=== PATIENT | male | born 1975 | race Caucasian/White ===

== ENCOUNTER 2018-10-04 10:32 | Inpatient (IN) ==
[2018-10-04] MEDS ORDERED: Vancomycin Inj 1,000 MG in Sodium Chlor 0.9% Inj 250 ML IV.SIG ONE (13:14)
--- NOTE | 2018-10-04 13:18 | ED ---
HPI General Chief complaint: Extremity Problem,Nontraumatic Stated complaint: Right Knee Complaint Time Seen by Provider: 10/04/18 12:55 History of Present Illness HPI narrative: 42-year-old IV drug user who was seen here 4 days ago for a right knee cellulitis. He was given Dalvance therapy and advised to come back for recheck in 48 hours. Instead he came back 4 days later and is not any better. He still has redness and warmth and swelling and discomfort in the right knee. He says it has drained a bit of fluid. He has not checked any temperatures but does not think he has any fever. His last IV drug use was 3 days ago. Symptom severity is moderate. No alleviating factors. Duration 6 days. No exacerbating factors. Related Data Previous Rx's Medication Instructions Recorded diclofenac sodium 50 mg PO TID #30 tab 09/30/18 Allergies Allergy/AdvReac Type Severity Reaction Status Date / Time No Known Allergies Allergy Unverified 10/04/18 10:47 Review of Systems ROS: all other systems reviewed are negative COUNTS INCLUDE 234 BEDS AT THE [facility] Social History Social History Substance History: Active Abuse Second Hand Smoke Exposure: No Smoking Status: Current every day smoker Tobacco Type: Cigarettes How Often Do You Have a Drink Containing Alcohol: Monthly or less Recent Travel in [facility] within the Last 8 Weeks: No Recent Out of Country Travel within the Last 8 Weeks: No Substance Abuse Detail Methamphetamine: Substance Use Status: Active Marijuana: Substance Use Status: Active Crack/Cocaine: Substance Use Status: Active Immunization History Tetanus Immunization: Unsure Exam Narrative Exam Narrative: GENERAL: Well-nourished, well-developed patient in no apparent distress. SKIN: Focused skin assessment reveals no rash and nodules. Skin is Warm and dry. HEAD: Atraumatic. Normocephalic. EYES: Pupils equal and round. No scleral icterus. No injection or drainage. ENT: No nasal bleeding or discharge. Mucous membranes pink and moist. NECK: Trachea midline. No JVD. CARDIOVASCULAR: Regular rate and rhythm. No murmur appreciated. RESPIRATORY: No accessory muscle use. Clear to auscultation. Breath sounds equal bilaterally. GASTROINTESTINAL: Abdomen soft, non-tender, nondistended. Hepatic and splenic margins not palpable. MUSCULOSKELETAL: Patient has a circular area of swelling erythema warmth and tenderness over the right patella. He has pain with flexion past 90 degrees. No pain with flexion less than that. No obvious deformities. No clubbing. No cyanosis. No edema. NEUROLOGICAL: Awake and alert. No obvious cranial nerve deficits. Motor grossly within normal limits. Normal speech. PSYCHIATRIC: Appropriate mood and affect; insight and judgment poor . Course Initial Documented Vital Signs Temperature 98.0 F 10/04/18 10:44 Pulse Rate 70 10/04/18 10:44 Respiratory Rate 20 10/04/18 10:44 Blood Pressure 138/81 10/04/18 10:44 Pulse Oximetry 100 10/04/18 10:44 Last Documented Vital Signs Temperature 98.0 F 10/04/18 10:44 Pulse Rate 70 10/04/18 10:44 Respiratory Rate 20 10/04/18 10:44 Blood Pressure 138/81 10/04/18 10:44 Pulse Oximetry 100 10/04/18 10:44 Medical Decision Making MDM Narrative Medical decision making narrative: 42-year-old IV drug using patient with right knee cellulitis/bursitis which is not improving with Dalvance therapy. He has failure of outpatient treatment. I did place an IV and sent in new labs and give him a gram of IV vancomycin. I believe he will require admission for IV antibiotics and failure of outpatient treatment. Without proper treatment this could possibly turn into a septic right knee joint. I do not believe it is a septic joint at this point But he will be at risk for development of that. labs are normal. I discussed with medical residents who will admit for IV antibiotics Medical Screen Exam Complete: Yes Emergency Medical Condition: Yes Differential Diagnosis Differential Diagnosis: Cellulitis, septic joint, failure of outpatient treatment Medical Records Medical records reviewed: Yes I reviewed the patient's medical records. Reviewed his visit from 4 days ago Lab Data Lab results reviewed: Yes I reviewed the patient's lab results. Lab results narrative: Labs are normal Result diagrams: 10/04/18 13:44 10/04/18 13:44 Lab Results 10/04/18 10/04/18 Range/Units 13:44 13:44 WBC 7.5 (4.0-11.0) th/mm3 RBC 4.16 L (4.50-5.90) mil/mm3 Hgb 13.0 (13.0-17.0) gm/dL Hct 37.6 L (39.0-51.0) % MCV 90.4 (80.0-100.0) fL MCH 31.2 (27.0-34.0) pg MCHC 34.5 (32.0-36.0) % RDW 13.5 (11.6-17.2) % Plt Count 392 (150-450) th/mm3 MPV 7.2 (7.0-11.0) fL Neut % (Auto) 77.1 H (16.0-70.0) % Lymph % (Auto) 17.1 (9.0-44.0) % Bee % (Auto) 4.6 (0.0-8.0) % Eos % (Auto) 0.8 (0.0-4.0) % Baso % (Auto) 0.4 (0.0-2.0) % Neut # (Auto) 5.7 (1.8-7.7) th/mm3 Lymph # (Auto) 1.3 (1.0-4.8) th/mm3 Bee # (Auto) 0.3 (0.0-0.9) th/mm3 Eos # (Auto) 0.1 (0.0-0.4) th/mm3 Baso # (Auto) 0.0 (0.0-0.2) th/mm3 WBC Differential . Differential Comment Auto diff final Sodium 141 (136-145) meq/L Potassium 3.8 (3.5-5.1) meq/L Chloride 106 (98-107) meq/L Carbon Dioxide 28.9 (21.0-32.0) meq/L Anion Gap 6 (5-15) meq/L BUN 3 L (7-18) mg/dL Creatinine 0.66 (0.60-1.30) mg/dL Estimated GFR Greater than 89 (>89) mL/min Random Glucose 91 (74-106) mg/dL Calcium 8.6 (8.5-10.1) mg/dL Total Bilirubin 0.1 L (0.2-1.0) mg/dL AST 30 (15-37) U/L ALT 42 (12-78) U/L Alkaline Phosphatase 88 (45-117) U/L Total Protein 7.9 (6.4-8.2) g/dL Albumin 3.0 L (3.4-5.0) g/dL Discharge Plan Discharge Disposition Patient Disposition: 30 Still Patient Discharge Details Diagnosis: Cellulitis of right knee, Failure of outpatient treatment Physicians Team ED Provider: Marcel Kay Primary Care Provider: Primary Care Jazzy Ortiz Rxs /Orders / Referrals /Forms Prescriptions: No Action diclofenac sodium 50 mg tablet,delayed release (DR/EC) 50 mg PO TID Qty: 30 RF: 0 Status ED Status: With Doctor
[2018-10-04 13:58] LABS: Baso % (Auto) 0.4 % (0.0-2.0); Eos # (Auto) 0.1 th/mm3 (0.0-0.4); Eos % (Auto) 0.8 % (0.0-4.0); Hematocrit 37.6 % (39.0-51.0); Lymph # (Auto) 1.3 th/mm3 (1.0-4.8); Lymph % (Auto) 17.1 % (9.0-44.0); Mean Corpuscular HGB Conc 34.5 % (32.0-36.0); Mean Corpuscular Hemoglobin 31.2 pg (27.0-34.0); Mean Corpuscular Volume 90.4 fL (80.0-100.0); Mean Platelet Volume 7.2 fL (7.0-11.0); Mono # (Auto) 0.3 th/mm3 (0.0-0.9); Mono % (Auto) 4.6 % (0.0-8.0); Neut # (Auto) 5.7 th/mm3 (1.8-7.7); Neut % (Auto) 77.1 % (16.0-70.0); Platelet Count 392 th/mm3 (150-450); Red Blood Count 4.16 mil/mm3 (4.50-5.90); Red Cell Distribution Width 13.5 % (11.6-17.2); White Blood Count 7.5 th/mm3 (4.0-11.0)
[2018-10-04 14:15] LABS: Anion Gap 6 meq/L (5-15); Aspartate Aminotransferase 30 U/L (15-37); Blood Urea Nitrogen 3 mg/dL (7-18); Calcium 8.6 mg/dL (8.5-10.1); Carbon Dioxide 28.9 meq/L (21.0-32.0); Chloride 106 meq/L (98-107); Glomerular Filtration Rate Greater Than 89 mL/min (>89); Glucose,Random 91 mg/dL (74-106); Potassium 3.8 meq/L (3.5-5.1); Sodium 141 meq/L (136-145)
[2018-10-04 14:16] LABS: Alanine Aminotransferase 42 U/L (12-78)
[2018-10-04 14:18] LABS: Alkaline Phosphatase 88 U/L (45-117); Total Protein 7.9 g/dL (6.4-8.2)
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
[2018-10-04] MEDS ORDERED: Acetaminophen 325 MG Tablet PO PRN (15:29)
[2018-10-04] MEDS ORDERED: Bisacodyl 10 MG Supp RECTAL PRN (15:29)
[2018-10-04] MEDS ORDERED: Vancomycin Consult Pharmacy OTHER PRN (15:42)
[2018-10-04] MEDS: Ketorolac 10 MG Tablet PO PRN (16:51)
[2018-10-04] MEDS: Sod Chloride 0.9% Inj 1,000 ML IV.CONT SCH (16:52)
[2018-10-04] MEDS: Enoxaparin Inj 30 MG/0.3 ML Syringe SQ SCH (17:45)
[2018-10-04] MEDS ORDERED: Naloxone Inj 0.4 MG/ML Vial IV.PUSH PRN (18:04)
[2018-10-04] MEDS ORDERED: Gadobutrol PF 7.5 MMOL/7.5 ML Vial (for RAD) IV.SIG ONE (19:04)
--- NOTE | 2018-10-04 19:37 | MR ---
EXAM DATE: 10/04/2018 7:05 PM EST AGE/SEX: 42 years / Male INDICATIONS: . Cellulitis. Right anterior knee wound. CLINICAL DATA: This is the patient's subsequent encounter. Patient reports that signs and symptoms h ave been present for 1 week and indicates a pain score of 4/10. MEDICAL/SURGICAL HISTORY: . IVDU. . Thoracic spine surgery. Clavicle plate. Right wrist surg tiera. COMPARISON: No prior exams available for comparison. TECHNIQUE: Multiplanar, multisequence MRI examination was performed with contrast and after the intr avenous administration of 7.5 ml Gadavist (gadobutrol) contrast as a single exam dose. FINDINGS: There is a complex rim-enhancing fluid collection in the soft tissues of the anterior knee anterior t o the patella and patellar tendon measuring at least 5.1 cm in length and 4.3 cm in transverse diamet er. There is overlying edema and soft tissue swelling. Part or all of this fluid collection could be within the prepatellar bursa. Finding is concerning for infection and possible abscess. There is surr ounding cellulitis. There is also a small knee joint effusion. The patellar tendon is intact. The anterior and posterior cruciate ligaments are intact. No meniscal tear is identified. There is some mild marrow edema along the medial femoral condyle extending in the supracondylar regio n and there is also some minimal edema within the patella. There is some mild marrow enhancement in t he medial femoral condyle postcontrast. CONCLUSION: 1. Probable prepatellar abscess or bursitis with complex rim-enhancing fluid collection present. The re is surrounding cellulitis. There is some mild marrow edema in the medial femoral condyle and neumann la with questionable enhancement postcontrast. Cannot exclude early osteomyelitis. Small knee joint e ffusion. Ligaments and menisci intact. Electronically signed by: Evin Tomas MD 10/04/2018 7:19 PM EST
[2018-10-04] MEDS: Senna/Docusate Sodium 8.6/50 MG Tablet PO SCH (21:07)
[2018-10-04] MEDS: Vancomycin Inj 1,250 MG in Sodium Chlor 0.9% Inj 250 ML IV.SIG SCH (23:24)
[2018-10-05] MEDS: Sod Chloride 0.9% Inj 1,000 ML IV.CONT SCH (04:49)
[2018-10-05 08:52] LABS: Baso % (Auto) 0.6 % (0.0-2.0); Eos # (Auto) 0.1 th/mm3 (0.0-0.4); Eos % (Auto) 1.9 % (0.0-4.0); Hematocrit 35.3 % (39.0-51.0); Hemoglobin 11.9 gm/dL (13.0-17.0); Lymph # (Auto) 1.1 th/mm3 (1.0-4.8); Mean Corpuscular HGB Conc 33.9 % (32.0-36.0); Mean Corpuscular Hemoglobin 30.4 pg (27.0-34.0); Mean Corpuscular Volume 89.7 fL (80.0-100.0); Mean Platelet Volume 7.4 fL (7.0-11.0); Mono # (Auto) 0.2 th/mm3 (0.0-0.9); Mono % (Auto) 4.8 % (0.0-8.0); Neut # (Auto) 3.7 th/mm3 (1.8-7.7); Neut % (Auto) 71.7 % (16.0-70.0); Platelet Count 404 th/mm3 (150-450); Red Blood Count 3.93 mil/mm3 (4.50-5.90); Red Cell Distribution Width 13.1 % (11.6-17.2); White Blood Count 5.1 th/mm3 (4.0-11.0)
[2018-10-05 09:29] LABS: Anion Gap 8 meq/L (5-15); Calcium 8.2 mg/dL (8.5-10.1); Carbon Dioxide 25.2 meq/L (21.0-32.0); Chloride 108 meq/L (98-107); Glomerular Filtration Rate Greater Than 89 mL/min (>89); Glucose,Random 81 mg/dL (74-106); Potassium 3.9 meq/L (3.5-5.1); Sodium 141 meq/L (136-145)
[2018-10-05 09:34] LABS: Blood Urea Nitrogen 4 mg/dL (7-18)
[2018-10-05] MEDS: Senna/Docusate Sodium 8.6/50 MG Tablet PO SCH ×2 (09:41→21:23)
[2018-10-05] MEDS: Ketorolac 10 MG Tablet PO PRN (09:41)
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
[2018-10-05] MEDS: Vancomycin Inj 1,250 MG in Sodium Chlor 0.9% Inj 250 ML IV.SIG SCH (13:23)
--- NOTE | 2018-10-05 15:11 | P.CONID ---
History of Present Illness Service: Infectious Disease Consult date: 10/05/18 Requesting Physician: Christopher Madrigal Reason for Consult: Evaluation and Mment of Patellar abscess and possible septic arthritis. Primary Care Provider: No Primary Care Physician Chief Complaint: Right knee cellulitis History of Present Illness: Mr. Ernst is a 42-year-old male with past medical history significant for IV drug abuse with prior history of multiple skin abscesses. Patient denies any prior history of endocarditis or epidural abscesses. Patient presented to the emergency department on September 30, 2018 for right knee pain and swelling. At that time he was thought to have cellulitis and was given 1 dose of dalbavancin which is an extended release Lipoglycoprotein like vancomycin IV and asked to return for reassessment in 2 days. Patient returned on 10/04/2018 and was admitted due to worsening pain and swelling. Knee pain worst with weight bearing, however still able to ambulate. He denies fever, chills , n/v, dizziness, back pain, cp or sob. Patient also noticed pus-like drainage from knee last night but denies increase in erythema. Of note patient uses IV heroin and meth, last used 3 days ago. He reports he only injects on both arms. Denies any pain elsewhere in his body. He denies any injection at knee likely hematogenous dissemination will need endovascular workup. ID consulted for evaluation and Mment of patellar abscess and possible right knee septic arthritis. Review of Systems All other systems reviewed negative except as stated in HPI PMFSH - History History Provided By: Patient - Medical History Medical History: Medical History (Last Reviewed 10/04/18 @ 10:47 by Susana Oh) Hepatitis C Patient denies medical problems - Surgical History Surgical History: Surgical History (Last Reviewed 10/04/18 @ 10:47 by Susana Oh) History of back surgery - Tobacco History Second Hand Smoke Exposure: Yes Tobacco Use In Past 30 Days: Yes Smoking Status: Current every day smoker Tobacco Type: Cigarettes - Alcohol History How Often Do You Have a Drink Containing Alcohol: Never - Substance Use History Substance History: Active Abuse - Substance Use Type Methamphetamine Status: Active Route Used: Intramuscular Reason for Use: Feels Good Marijuana Status: Active Route Used: By Mouth Reason for Use: Feels Good Crack/Cocaine Status: Active Route Used: Intramuscular Last Used: 10/01/18 Reason for Use: Feels Good - Travel History Recent Travel in the [place] Within the Last 8 Weeks: No Recent Travel Out of the Country Within the Last 8 Weeks: No - Immunization History Tetanus Immunization: <5 Years Hx Influenza Vaccine This Season: Yes Medications and Allergies Active Medications: Active Medications Acetaminophen (Tylenol) 650 mg PO Q4H PRN PRN Reason: pain or fever Al Hydroxide/Mg Hydroxide (Milk Of Magnesia Liq) 30 ml PO Q12H PRN PRN Reason: Mild Constipation Bisacodyl (Dulcolax Supp) 10 mg RECTAL DAILY PRN PRN Reason: SEVERE CONSITIPATION Enoxaparin Sodium (Lovenox Inj) 30 mg SQ Q24H [facility] Last Admin: 10/04/18 17:45 Dose: 30 mg Vancomycin HCl 1,250 mg/ (Sodium Chloride) 262.5 mls @ 250 mls/hr IV.SIG Q12H [facility] Last Admin: 10/05/18 13:23 Dose: Not Given Ketorolac Tromethamine (Toradol) 10 mg PO Q6H PRN PRN Reason: pain 4-10 Stop: 10/09/18 15:34 Last Admin: 10/05/18 09:41 Dose: 10 mg Lactulose (Lactulose Liq) 30 ml PO DAILY PRN PRN Reason: SEVERE CONSITIPATION Miscellaneous Information ([facility] [place] [facility] Ordered Lab Info) 0 each OTHER ONCE ONE Stop: 10/06/18 11:46 Morphine Sulfate (Morphine Inj) 4 mg IV.PUSH Q3H PRN PRN Reason: BREAKTHROUGH PAIN Naloxone HCl (Narcan Inj) 0.4 mg IV.PUSH UNSCH PRN PRN Reason: SEE LABEL COMMENTS Ondansetron HCl (Zofran Inj) 4 mg IV.PUSH Q6H PRN PRN Reason: NAUSEA OR VOMITING Pharmacy Profile Note (Vancomycin Consult Pharmacy) 1 each OTHER UNSCH PRN PRN Reason: Pharmacy to dose Senna/Docusate Sodium (Paty-Colace) 1 tab PO BID [facility] Last Admin: 10/05/18 09:41 Dose: 1 tab Sennosides (Senokot) 17.2 mg PO Q12H PRN PRN Reason: Moderate Constipation Allergies Allergy/AdvReac Type Severity Reaction Status Date / Time No Known Allergies Allergy Unverified 10/04/18 10:47 Exam Vital signs: Vital Signs 10/04/18 20:00 10/05/18 04:00 10/05/18 08:00 Temperature 97.9 F 98 F 98.0 F Pulse Rate 62 59 L 58 L Respiratory Rate 17 18 18 Blood Pressure 121/75 128/82 119/65 Pulse Oximetry 98 98 100 10/05/18 12:00 Temperature 98.0 F Pulse Rate 58 L Respiratory Rate 18 Blood Pressure 119/65 Pulse Oximetry 100 Intake & Output 10/04/18 10/05/18 10/05/18 18:59 06:59 18:59 Intake Total 250 / 250 1742.5 / 1742.5 Output Total 450 / 450 Balance 250 / 250 1292.5 / 1292.5 Weight 72.575 kg Intake: IV 250 / 250 1262.5 / 1262.5 NS Inj 1,000 ML @ 100 mls/hr IV 1000 / 1000 .CONT .Q10H [facility] Rx#:[id number] Vancomycin Inj 1,000 MG In NS 250 / 250 Inj 250 ML @ 250 mls/hr IV.SIG ONCE ONE Rx#:[id number] Vancomycin Inj 1,250 MG In NS 262.5 / 262.5 Inj 250 ML @ 250 mls/hr IV.SIG Q12H [facility] Rx#:[id number] Oral 480 / 480 Output: Urine 450 / 450 Other: # Bowel Movements 0 Narrative: GENERAL: Well-nourished well-developed, not in acute distress SKIN: Cool and dry, no generalized rash HEAD: Atraumatic. Normocephalic. No temporal or scalp tenderness. EYES: Pupils equal round and reactive. Scleral icterus. No injection or drainage. No petechia ENT: Nothing abnormal detected NECK: Trachea midline. Supple, nontender, no meningeal signs. CARDIOVASCULAR: HS audible. RESPIRATORY: Clear to auscultation bilaterally. GASTROINTESTINAL: Abdomen soft nontender. MUSCULOSKELETAL: Right knee with swelling noted. Skin over the knee joint with blister like skin peeling. RN reports it was blister like with fluid filled. NEUROLOGICAL: Alert oriented 3. Nonfocal. Psych cooperative IV line sites ok. Results - Labs CBC & Chem 7: 10/05/18 07:13 10/05/18 07:13 Labs: Laboratory Results - last 24 hr 10/04/18 10/05/18 10/05/18 13:44 07:13 07:13 WBC 5.1 RBC 3.93 L Hgb 11.9 L Hct 35.3 L MCV 89.7 MCH 30.4 MCHC 33.9 RDW 13.1 Plt Count 404 MPV 7.4 Neut % (Auto) 71.7 H Lymph % (Auto) 21.0 [place] % (Auto) 4.8 Eos % (Auto) 1.9 Baso % (Auto) 0.6 Neut # (Auto) 3.7 Lymph # (Auto) 1.1 [place] # (Auto) 0.2 Eos # (Auto) 0.1 Baso # (Auto) 0.0 WBC Differential . Differential Comment Auto diff final Sodium 141 Potassium 3.9 Chloride 108 H Carbon Dioxide 25.2 Anion Gap 8 BUN 4 L Creatinine 0.73 Estimated GFR Greater than 89 Random Glucose 81 Calcium 8.2 L C-Reactive Protein 3.01 H 1.10 H - Imaging Impressions Knee MRI 10/04/18 00:00 CONCLUSION: 1. Probable prepatellar abscess or bursitis with complex rim-enhancing fluid collection present. There is surrounding cellulitis. There is some mild marrow edema in the medial femoral condyle and patella with questionable enhancement postcontrast. Cannot exclude early osteomyelitis. Small knee joint effusion. Ligaments and menisci intact. Assessment and Plan - Plan Right knee patellar abscess/bursitis Right knee possible septi c arthritis IVDA H/o Hep C Shares needles consented to HIV Hepatitis testing. h/o skin abscesses in past. Recs: Patient has received Dalbavancin please dont give any more Vanco IV as it can be nephrotoxic. Will switch to Zyvox IV for next few days till Dalvance elimination life reached. Will get coverage for VRE and MRSA as patient likely continued abusing drugs post ED visit. Monitor Platelets and HCO3 if any change in clinical condition add Cefepime IV for PSAE coverage in an IVDA. For now since prelim organisms are GPC in pairs Gram positive coverage alone ok. 2D ECHO to r.o endocarditis. Check GC and Chlamydia as GC arthritis can be monoarticular. Check hepatitis profile Check HIV screen Follow cultures follow clinical course. Dr Clemente to cover for me this weekend.
[2018-10-05] MEDS: Enoxaparin Inj 30 MG/0.3 ML Syringe SQ SCH ×2 (17:24→18:02)
[2018-10-05 21:14] LABS: Hepatitits B Surface Antigen Nonreactive (Nonreactive)
[2018-10-05 21:23] LABS: Hepatitis A IgM Antibody Nonreactive (Nonreactive)
[2018-10-06] MEDS ORDERED: fentaNYL Citrate Inj 250 MCG/5 ML Ampul ONE (07:12)
[2018-10-06 07:19] LABS: Baso % (Auto) 0.6 % (0.0-2.0); Eos # (Auto) 0.1 th/mm3 (0.0-0.4); Eos % (Auto) 2.5 % (0.0-4.0); Hematocrit 36.9 % (39.0-51.0); Hemoglobin 12.4 gm/dL (13.0-17.0); Lymph # (Auto) 1.4 th/mm3 (1.0-4.8); Lymph % (Auto) 25.9 % (9.0-44.0); Mean Corpuscular HGB Conc 33.8 % (32.0-36.0); Mean Corpuscular Hemoglobin 30.4 pg (27.0-34.0); Mean Corpuscular Volume 90.1 fL (80.0-100.0); Mean Platelet Volume 7.1 fL (7.0-11.0); Mono # (Auto) 0.3 th/mm3 (0.0-0.9); Mono % (Auto) 5.8 % (0.0-8.0); Neut # (Auto) 3.6 th/mm3 (1.8-7.7); Neut % (Auto) 65.2 % (16.0-70.0); Platelet Count 397 th/mm3 (150-450); Red Blood Count 4.09 mil/mm3 (4.50-5.90); Red Cell Distribution Width 12.9 % (11.6-17.2); White Blood Count 5.6 th/mm3 (4.0-11.0)
[2018-10-06] MEDS ORDERED: ceFAZolin 1 GM Premix Inj 0 GM/0 ML FROZ.PIGGY IV.SIG ONE (07:23)
[2018-10-06 07:46] LABS: Anion Gap 9 meq/L (5-15); Blood Urea Nitrogen 6 mg/dL (7-18); Calcium 8.2 mg/dL (8.5-10.1); Carbon Dioxide 26.3 meq/L (21.0-32.0); Chloride 107 meq/L (98-107); Glomerular Filtration Rate Greater Than 89 mL/min (>89); Glucose,Random 82 mg/dL (74-106); Sodium 142 meq/L (136-145)
[2018-10-06] MEDS ORDERED: Lidocaine PF 1% Inj 5 ML Syringe OTHER ONE (07:51)
[2018-10-06] MEDS ORDERED: Sodium Chlor 0.9% Inj 250 ML IV.CONT ONE (07:51)
[2018-10-06] MEDS ORDERED: Sodium Chloride 0.9% 2 ML Flush PRN IV.FLUSH (08:20)
[2018-10-06] MEDS: Senna/Docusate Sodium 8.6/50 MG Tablet PO SCH ×2 (08:23→20:00)
[2018-10-06] MEDS ORDERED: *Meperidine Inj 25 MG/ML Vial PERIprocedural Use ONLY ONE (08:55)
[2018-10-06] MEDS ORDERED: *morphine SULFATE 10 MG/ML PERIprocedure ONLY ONE (09:02)
[2018-10-06] MEDS ORDERED: *HYDROmorphone PF Inj 1 MG/ML Ampul PERIprocedural Use ONLY ONE (09:20)
[2018-10-06] MEDS: Sodium Chloride 0.9% 2 ML Flush BID IV.FLUSH SCH ×2 (09:32→20:01)
--- NOTE | 2018-10-06 10:02 | MB ---
cc: Kade Geiger MD DATE: 10/06/2018 REASON FOR CONSULTATION: Right knee infection. HISTORY OF PRESENT ILLNESS: The patient is a 42-year-old male with past history of IV drug abuse, multiple skin abscesses. He states he had fallen, injuring his right knee. He developed the onset of increasing pain, swelling, redness and purulent drainage. He also has a history of endocarditis and epidural abscess. He was apparently seen in the emergency room, put on antibiotics and discharged. He returned with increasing pain and swelling of the knee. He does show evidence of infection and placed on IV antibiotics. Orthopedic surgery has been consulted for evaluation and management of this condition. He has had malaise and fevers. PAST MEDICAL HISTORY: Positive for hepatitis C, IV drug abuse, epidural abscess, and endocarditis. PAST SURGICAL HISTORY: He has had back surgery. REVIEW OF SYSTEMS: Negative other than noted in HPI for 10 systems. SOCIAL HISTORY: He does smoke. He does use IV drugs. He does drink alcohol. MEDICATIONS: Include: 1. Vancomycin. 2. Morphine. 3. Ketorolac. 4. Lovenox. ALLERGIES: NO KNOWN DRUG ALLERGIES. FAMILY HISTORY: Reviewed and noncontributory. PHYSICAL EXAMINATION: VITAL SIGNS: Temperature 97.9, pulse 62, respirations 17, blood pressure 121/75. GENERAL: The patient is awake, alert, lying in bed, in no acute distress. SKIN: Cool and dry. No rash. HEENT: Normocephalic, atraumatic. Pupils round. Extraocular muscles intact. NECK: Supple. LUNGS: Clear. HEART: Regular rate and rhythm. ABDOMEN: Soft, nontender. EXTREMITIES: Right knee has significant swelling, mostly of the prepatellar area. There is blistering of the skin and purulence noted. He flexes his ankles and toes distally. LABORATORY DATA: White blood cell count 5.1, hemoglobin 11, hematocrit 35, platelets 404. IMAGING: MRI of the right knee shows a prepatellar abscess and bursitis surrounding cellulitis. There is some marrow edema of the medial femoral condyle and patella. IMPRESSION: A 42-year-old male with history of fall. Also, history of IV drug abuse, hepatitis C with infected prepatellar septic bursitis with abscess. PLAN: I discussed the diagnosis and treatment options with the patient and spoke of the option of nonoperative treatment versus surgery. Surgery consists of irrigation and debridement, incision and drainage, and application of wound VAC. Risks were discussed, which include, but are not limited to anesthesia, bleeding, continued infection, pain, stiffness, damage to nerves, or blood vessels. The patient does wish to proceed with surgery. Written consent has been obtained. The surgical site has been marked. Kade Geiger MD [id number] , 08:47 AM , 08:55 AM
--- NOTE | 2018-10-06 10:48 | P.PNFP ---
Addendum entered and electronically signed by Aliya Frazier MD, R1 10/06/18 11:44: Following ID recommendations and stopping vancomycin. The patient will be on Zyvox IV until further recommendations based on cultures. Original Note: Subjective Interval history: Patient states he is in pain after surgery and hungry. Re- assured patient to ask nurse for pain medications and diet was ordered. Gave patient crackers and peanut butter until meal came. Patient denied any SOB, CP, or fevers. <Aliya Frazier C - 10/06/18 11:02> Results - Labs Result diagrams: 10/06/18 05:48 10/06/18 05:48 <Rina Lam R - 10/07/18 07:15> Abnormal lab results 10/06/18 10/06/18 Range/Units 05:48 05:48 RBC 4.09 L (4.50-5.90) mil/mm3 Hgb 12.4 L (13.0-17.0) gm/dL Hct 36.9 L (39.0-51.0) % BUN 6 L (7-18) mg/dL Calcium 8.2 L (8.5-10.1) mg/dL Short CBC 10/06/18 Range/Units 05:48 WBC 5.6 (4.0-11.0) th/mm3 Hgb 12.4 L (13.0-17.0) gm/dL Hct 36.9 L (39.0-51.0) % Plt Count 397 (150-450) th/mm3 [facility] 10/06/18 05:48 Sodium 142 Potassium 4.0 Chloride 107 Carbon Dioxide 26.3 BUN 6 L Creatinine 0.77 Calcium 8.2 L <Rina Lam R - 10/07/18 07:15> Abnormal lab results 10/05/18 10/06/18 10/06/18 Range/Units 18:53 05:48 05:48 RBC 4.09 L (4.50-5.90) mil/mm3 Hgb 12.4 L (13.0-17.0) gm/dL Hct 36.9 L (39.0-51.0) % BUN 6 L (7-18) mg/dL Calcium 8.2 L (8.5-10.1) mg/dL Hep C IgG Ab Reactive H (Nonreactive) Short CBC 10/06/18 Range/Units 05:48 WBC 5.6 (4.0-11.0) th/mm3 Hgb 12.4 L (13.0-17.0) gm/dL Hct 36.9 L (39.0-51.0) % Plt Count 397 (150-450) th/mm3 BMP 10/06/18 05:48 Sodium 142 Potassium 4.0 Chloride 107 Carbon Dioxide 26.3 BUN 6 L Creatinine 0.77 Calcium 8.2 L <Aliya Frazier C - 10/06/18 10:48> Physical Exam Vital signs: Vital Signs 10/06/18 08:45 10/06/18 09:00 10/06/18 09:25 Temperature 97.8 F Pulse Rate 52 L 52 L 50 L Respiratory Rate 17 17 12 Blood Pressure 111/69 132/80 133/81 Pulse Oximetry 97 97 96 10/06/18 09:30 10/06/18 09:45 10/06/18 10:00 Temperature 97.8 F Pulse Rate 50 L 50 L 53 L Respiratory Rate 15 12 12 Blood Pressure 123/77 134/87 135/80 Pulse Oximetry 96 96 96 10/06/18 12:00 10/06/18 13:00 10/06/18 16:00 Temperature 97.4 F L 97.6 F Pulse Rate 67 51 L 54 L Respiratory Rate 18 18 Blood Pressure 134/71 123/66 Pulse Oximetry 97 95 10/06/18 20:00 10/06/18 20:12 10/06/18 23:51 Temperature 97.6 F Pulse Rate 60 83 52 L Respiratory Rate 18 Blood Pressure 118/63 Pulse Oximetry 97 10/07/18 00:00 10/07/18 03:53 10/07/18 04:00 Temperature 97.8 F 97.9 F Pulse Rate 57 L 51 L 55 L Respiratory Rate 16 16 Blood Pressure 115/63 122/71 Pulse Oximetry 100 97 Intake & Output 10/06/18 10/07/18 10/07/18 18:59 06:59 18:59 Intake Total 1020 / 1020 900 / 900 Output Total 1000 / 1000 1500 / 1500 Balance -600 / -600 Weight 73.9 kg Intake: IV 300 / 300 300 / 300 Zyvox 600 mg Premix 300 ML @ 300 / 300 300 / 300 300 mls/hr IV.SIG Q12H [facility] Rx#: [id number] Oral 720 / 720 600 / 600 Output: Urine 1000 / 1000 1500 / 1500 Other: Mode Setting Right Knee Continuous Continuous <Rina Lam R - 10/07/18 07:15> Vital Signs 10/05/18 12:00 10/05/18 16:00 10/05/18 20:00 Temperature 98.0 F 98.0 F 97.4 F L Pulse Rate 58 L 56 L 56 L Respiratory Rate 18 20 17 Blood Pressure 119/65 127/76 127/64 Pulse Oximetry 100 100 95 10/05/18 21:00 10/06/18 00:00 10/06/18 01:00 Temperature 97.8 F Pulse Rate 63 62 57 L Respiratory Rate 14 Blood Pressure 132/80 Pulse Oximetry 99 10/06/18 04:00 10/06/18 08:45 10/06/18 09:00 Temperature 97.5 F L 97.8 F Pulse Rate 51 L 52 L 52 L Respiratory Rate 14 17 17 Blood Pressure 119/73 111/69 132/80 Pulse Oximetry 97 97 97 10/06/18 09:25 10/06/18 09:30 10/06/18 09:45 Temperature Pulse Rate 50 L 50 L 50 L Respiratory Rate 12 15 12 Blood Pressure 133/81 123/77 134/87 Pulse Oximetry 96 96 96 10/06/18 10:00 Temperature 97.8 F Pulse Rate 53 L Respiratory Rate 12 Blood Pressure 135/80 Pulse Oximetry 96 Intake & Output 10/05/18 10/06/18 10/06/18 18:59 06:59 18:59 Intake Total 1208 / 1208 540 / 540 Output Total 1400 / 1400 Balance -192 / -192 540 / 540 Intake: IV 500 / 500 300 / 300 NS Inj 1,000 ML @ 100 mls/hr IV 500 / 500 .CONT .Q10H [facility] Rx#:[id number] Zyvox 600 mg Premix 300 ML @ 300 / 300 300 mls/hr IV.SIG Q12H [facility] Rx#: [id number] Oral 708 / 708 240 / 240 Output: Urine 1400 / 1400 Other: # Voids 4 # Bowel Movements 0 <Aliya Frazier - 10/06/18 10:48> Narrative: GENERAL: Well-nourished well-developed, not in acute distress SKIN: Cool and dry, no generalized rash HEAD: Atraumatic. Normocephalic. No temporal or scalp tenderness. EYES: Pupils equal round and reactive. Scleral icterus. No injection or drainage. No petechia ENT: Nothing abnormal detected NECK: Trachea midline. Supple, nontender, no meningeal signs. CARDIOVASCULAR: HS audible. RESPIRATORY: Clear to auscultation bilaterally. GASTROINTESTINAL: Abdomen soft nontender. MUSCULOSKELETAL: right knee wound vac in place draining serous sanguinous fluid. Knee some erythema. NEUROLOGICAL: Alert oriented 3. Nonfocal. Psych cooperative IV line sites ok. <Aliya Frazier C - 10/06/18 11:02> Assessment and Plan - Assessment (1) Cellulitis of right knee Code(s): L03.115 - Cellulitis of right lower limb Status: Inactive (2) Hepatitis C Code(s): B19.20 - Unspecified viral hepatitis C without hepatic coma Status: Acute (3) Nutrition, metabolism, and development symptoms Code(s): R63.8 - Other symptoms and signs concerning food and fluid intake Status: Acute <Rina Lam R - 10/07/18 07:15> (1) Cellulitis of right knee Code(s): L03.115 - Cellulitis of right lower limb Status: Inactive Plan: Patient is a 42-year-old male with past medical history of IV drug use presenting to the ED with worsening right knee pain and swelling. Patient failed out patient treatment with Dalvance. Admitted for Right knee cellulitis with failed outpatient treatment. Prior ED encounter on 09/30 x-ray of the right knee showed: Prepatellar swelling , no acute bony abnormalities. On admission patient vital signs, CBC and CMP were within normal limits. Right knee erythema and swelling noted on exam with limited flexion due to pain. Erythema measured to be 10 x 8 cm. MRI: abscess vs bursitis; given edema cannot rule out osteomyelitis 10/05/18 Involved area of the right knee pre-patellar region now has some spontaneous drainage which has been cultured. Inflammatory changes have improved. Will continue IV antibiotics. Will consult ID regarding further treatment recommendations. I would suspect that this infection is more likely associated with the recent trauma than with IV drug use. In the ED patient received IV vancomycin x1 -Continue with IV vancomycin, pharmacy consulted for dosage adjustment -Tylenol and Toradol for pain -BCX NG to date -Wound gram stain G+ cocci; CX pending -ID consult: GC and chlamydia, HIV, hep C labs -Ortho consult: of irrigation and debridement, incision and drainage, and application of wound VAC; cultures pending (2) Hepatitis C Code(s): B19.20 - Unspecified viral hepatitis C without hepatic coma Status: Acute Plan: Diagnosed with Hep C during admission. -RNA PCR pending -appreciate ID recommendations (3) Nutrition, metabolism, and development symptoms Code(s): R63.8 - Other symptoms and signs concerning food and fluid intake Status: Acute Plan: Fluids: none Electrolytes: Replete as needed Diet: Regular diet DVT prophylaxis: Lovenox SQ <Aliya Frazier - 10/06/18 10:59> - Attending Attestation This patient was seen and examined. The assessment and plan was discussed with the resident physician and I am in agreement with continued medical care as documented in this encounter. RINA LAM MD <Rina Lam - 10/07/18 07:15>
[2018-10-06] MEDS: Morphine Inj 4 MG/ML Vial IV.PUSH PRN ×2 (11:18→15:34)
[2018-10-06] MEDS ORDERED: Pharmacy Ordered Lab Info OTHER ONE (11:45)
--- NOTE | 2018-10-06 12:14 | MP ---
cc: Kade Geiger MD DATE OF OPERATION: 10/06/2018 PREOPERATIVE DIAGNOSIS: Right knee infected septic bursitis. POSTOPERATIVE DIAGNOSIS: Right knee infected septic bursitis. PROCEDURE: Irrigation and debridement, incision and drainage, right knee, application of wound VAC. SURGEON: Kade Geiger MD ANESTHESIA: General. ESTIMATED BLOOD LOSS: 100 mL. TOURNIQUET TIME: Zero. COMPLICATIONS: None. INDICATIONS: The patient is a 42-year-old male who had a history of a fall, also history of IV drug abuse, who developed increasing pain, swelling, redness, purulence, infection and drainage involving the right knee. He was admitted to [facility]. Orthopedic surgery was consulted and we discussed with the patient the risks, benefits and alternatives regarding the above mentioned pre- and postop procedure. He agrees to proceed with surgery. PROCEDURE IN DETAIL: Written consent was obtained. The patient was identified by name, taken to the operating room and placed supine with general anesthesia administered to the patient, as well as 1 gram of IV vancomycin. The right lower extremity was prepped and draped using isopropyl alcohol, Hibiclens solution and ChloraPrep 3 times. A timeout was performed. Lateral incision was made over the anterior aspect of the right knee. A copious amount of purulent fluid was noted to come from the prepatellar space. A 10 blade scalpel was used to perform an excisional debridement of the bursa and infected tissue. The wound was then thoroughly irrigated with 3 liters of sterile saline plus antibiotic impregnated solution. A wound VAC sponge was applied. The patient tolerated the procedure well. No intraoperative complications noted. MD ABBE Bautista/sergo/yaneli , 08:49 AM , 08:53 AM
[2018-10-06] MEDS: Enoxaparin Inj 30 MG/0.3 ML Syringe SQ SCH (15:17)
--- NOTE | 2018-10-06 15:29 | P.PNID ---
Subjective Remarks: Mr. Ernst is a 42-year-old male with past medical history significant for IV drug abuse with prior history of multiple skin abscesses. Patient denies any prior history of endocarditis or epidural abscesses. Patient presented to the emergency department on September 30, 2018 for right knee pain and swelling. At that time he was thought to have cellulitis and was given 1 dose of dalbavancin which is an extended release Lipoglycoprotein like vancomycin IV and asked to return for reassessment in 2 days. Patient returned on 10/04/2018 and was admitted due to worsening pain and swelling. Knee pain worst with weight bearing, however still able to ambulate. He denies fever, chills , n/v, dizziness, back pain, cp or sob. Patient also noticed pus-like drainage from knee last night but denies increase in erythema. Of note patient uses IV heroin and meth, last used 3 days ago. He reports he only injects on both arms. Denies any pain elsewhere in his body. He denies any injection at knee likely hematogenous dissemination will need endovascular workup. ID consulted for evaluation and Mment of patellar abscess and possible right knee septic arthritis. Notes reviewed Temps ok Had surgery this morning - septic prepatellar bursitis; has wound vac in place C/O severe pain D/W RN C/S 10/05 Staph aureus preliminary BC negative Antibiotics: Zyvox Lines: PIV Past Medical History: Hep C Back surgery Allergies/Adverse Reactions: Allergies No Known Allergies Allergy (Unverified 10/04/18 10:47) Objective Vital Signs 10/05/18 16:00 10/05/18 20:00 10/05/18 21:00 Temperature 98.0 F 97.4 F L Pulse Rate 56 L 56 L 63 Respiratory Rate 20 17 Blood Pressure 127/76 127/64 Pulse Oximetry 100 95 10/06/18 00:00 10/06/18 01:00 10/06/18 04:00 Temperature 97.8 F 97.5 F L Pulse Rate 62 57 L 51 L Respiratory Rate 14 14 Blood Pressure 132/80 119/73 Pulse Oximetry 99 97 10/06/18 08:45 10/06/18 09:00 10/06/18 09:25 Temperature 97.8 F Pulse Rate 52 L 52 L 50 L Respiratory Rate 17 17 12 Blood Pressure 111/69 132/80 133/81 Pulse Oximetry 97 97 96 10/06/18 09:30 10/06/18 09:45 10/06/18 10:00 Temperature 97.8 F Pulse Rate 50 L 50 L 53 L Respiratory Rate 15 12 12 Blood Pressure 123/77 134/87 135/80 Pulse Oximetry 96 96 96 10/06/18 12:00 10/06/18 13:00 Temperature 97.4 F L Pulse Rate 67 51 L Respiratory Rate 18 Blood Pressure 134/71 Pulse Oximetry 97 Intake & Output 10/05/18 10/06/18 10/06/18 18:59 06:59 18:59 Intake Total 1208 / 1208 540 / 540 300 / 300 Output Total 1400 / 1400 Balance -192 / -192 540 / 540 300 / 300 Intake: IV 500 / 500 300 / 300 300 / 300 NS Inj 1,000 ML @ 100 mls/hr IV 500 / 500 .CONT .Q10H [facility] Rx#:[id number] Zyvox 600 mg Premix 300 ML @ 300 / 300 300 / 300 300 mls/hr IV.SIG Q12H [facility] Rx#: [id number] Oral 708 / 708 240 / 240 Output: Urine 1400 / 1400 Other: Mode Setting Right Knee Continuous # Voids 4 # Bowel Movements 0 10/06/18 08:29 Wound - Knee Gram Stain - Final 10/06/18 08:29 Wound - Knee Wound Culture - Pending 10/05/18 10:15 Wound - Knee Gram Stain - Final 10/05/18 10:15 Wound - Knee Wound Culture - Preliminary Staphylococcus aureus 10/05/18 07:17 Blood - Peripheral Aerobic Blood Culture - Preliminary No growth in 1 day 10/05/18 07:17 Blood - Peripheral Anaerobic Blood Culture - Preliminary No growth in 1 day 10/05/18 07:13 Blood - Peripheral Aerobic Blood Culture - Preliminary No growth in 1 day 10/05/18 07:13 Blood - Peripheral Anaerobic Blood Culture - Preliminary No growth in 1 day 10/06/18 08:29 Wound - Knee Fungal Smear - Pending 10/06/18 08:29 Wound - Knee Fungal Culture - Pending 10/06/18 08:29 Wound - Knee Acid Fast Bacilli Smear - Pending 10/06/18 08:29 Wound - Knee Mycobacterial Culture - Pending Lab - Hematology Results 10/05/18 10/06/18 07:13 05:48 WBC 5.1 5.6 RBC 3.93 L 4.09 L Hgb 11.9 L 12.4 L Hct 35.3 L 36.9 L MCV 89.7 90.1 MCH 30.4 30.4 MCHC 33.9 33.8 RDW 13.1 12.9 Plt Count 404 397 MPV 7.4 7.1 Neut % (Auto) 71.7 H 65.2 Lymph % (Auto) 21.0 25.9 [place] % (Auto) 4.8 5.8 Eos % (Auto) 1.9 2.5 Baso % (Auto) 0.6 0.6 Neut # (Auto) 3.7 3.6 Lymph # (Auto) 1.1 1.4 [place] # (Auto) 0.2 0.3 Eos # (Auto) 0.1 0.1 Baso # (Auto) 0.0 0.0 WBC Differential . . Differential Comment Auto diff final Auto diff final Lab - Chemistry Results 10/04/18 10/05/18 10/06/18 13:44 07:13 05:48 Sodium 141 142 Potassium 3.9 4.0 Chloride 108 H 107 Carbon Dioxide 25.2 26.3 Anion Gap 8 9 BUN 4 L 6 L Creatinine 0.73 0.77 Estimated GFR Greater than 89 Greater than 89 Random Glucose 81 82 Calcium 8.2 L 8.2 L C-Reactive Protein 3.01 H 1.10 H Imaging: ITS Impressions Knee MRI 10/04/18 00:00 CONCLUSION: 1. Probable prepatellar abscess or bursitis with complex rim-enhancing fluid collection present. There is surrounding cellulitis. There is some mild marrow edema in the medial femoral condyle and patella with questionable enhancement postcontrast. Cannot exclude early osteomyelitis. Small knee joint effusion. Ligaments and menisci intact. Physical Exam: GENERAL: Well-nourished well-developed, awake and alert, not in respiratory distress SKIN: Cool and dry, no generalized rash HEAD: Atraumatic. Normocephalic. No temporal or scalp tenderness. EYES: Pupils equal round and reactive. Scleral icterus. No injection or drainage. No petechia ENT:No nasal drainage, moist oral mucosa NECK: Trachea midline. Supple, nontender, no meningeal signs. CARDIOVASCULAR: HS audible. RESPIRATORY: Clear to auscultation bilaterally. GASTROINTESTINAL: Abdomen soft nontender. MUSCULOSKELETAL: Right knee with wound vac in place, has periwound erythema and induration. No calf tenderness NEUROLOGICAL: Alert oriented 3. Nonfocal. Psych cooperative IV line sites ok. Assessment and Plan - Plan Right knee patellar abscess/bursitis Cellulitis R knee IVDA H/o Hep C Shares needles consented to HIV Hepatitis testing. h/o skin abscesses in past. Recs: Patient has received Dalbavancin please dont give any more Vanco IV as it can be nephrotoxic. Continue Zyvox IV for next few days till Dalvance elimination life reached. Will get coverage for VRE and MRSA as patient likely continued abusing drugs post ED visit. Follow C/S Monitor Platelets and HCO3 while on Zyvox 2D ECHO to r.o endocarditis. Follow other serology testing. Follow clinical course.
[2018-10-06] MEDS: Ketorolac 10 MG Tablet PO PRN (20:00)
[2018-10-07] MEDS: Ketorolac 10 MG Tablet PO PRN ×3 (06:33→21:16)
[2018-10-07] MEDS: Sodium Chloride 0.9% 2 ML Flush BID IV.FLUSH SCH ×2 (08:05→21:17)
[2018-10-07] MEDS: Senna/Docusate Sodium 8.6/50 MG Tablet PO SCH ×2 (08:05→21:16)
[2018-10-07 08:38] LABS: Baso % (Auto) 0.3 % (0.0-2.0); Eos # (Auto) 0.1 th/mm3 (0.0-0.4); Eos % (Auto) 0.7 % (0.0-4.0); Hematocrit 31.7 % (39.0-51.0); Hemoglobin 11.5 gm/dL (13.0-17.0); Lymph % (Auto) 22.2 % (9.0-44.0); Mean Corpuscular Volume 88.3 fL (80.0-100.0); Mean Platelet Volume 6.9 fL (7.0-11.0); Mono # (Auto) 0.6 th/mm3 (0.0-0.9); Mono % (Auto) 6.6 % (0.0-8.0); Neut # (Auto) 6.2 th/mm3 (1.8-7.7); Neut % (Auto) 70.2 % (16.0-70.0); Platelet Count 396 th/mm3 (150-450); Red Blood Count 3.59 mil/mm3 (4.50-5.90); Red Cell Distribution Width 12.9 % (11.6-17.2); White Blood Count 8.8 th/mm3 (4.0-11.0)
[2018-10-07 08:43] LABS: Mean Corpuscular HGB Conc 36.3 % (32.0-36.0)
[2018-10-07 09:01] LABS: Anion Gap 6 meq/L (5-15); Blood Urea Nitrogen 10 mg/dL (7-18); Carbon Dioxide 30.3 meq/L (21.0-32.0); Chloride 105 meq/L (98-107); Glomerular Filtration Rate Greater Than 89 mL/min (>89); Glucose,Random 83 mg/dL (74-106); Potassium 3.8 meq/L (3.5-5.1); Sodium 141 meq/L (136-145)
[2018-10-07] MEDS: Morphine Inj 4 MG/ML Vial IV.PUSH PRN ×2 (09:15→16:47)
[2018-10-07 09:28] LABS: Eosinophils 1 % (0-4); Lymphocytes 23 % (9-44); Monocytes 8 % (0-8); Myelocytes 1 % (0-0); Platelet Estimate Normal (Normal); Platelet Morphology Normal (Normal)
[2018-10-07 09:29] LABS: RBC Morphology Normal (Normal)
--- NOTE | 2018-10-07 11:56 | P.PNFP ---
Subjective Interval history: Patient seen and examined at bedside this morning. No acute events overnight. Patient reports pain is well controlled. He has wound VAC in place status post I&D of right knee wound by Ortho yesterday. No current complaints. Denies any fever, chills, chest pain, shortness of breath, palpitations, nausea, vomiting or abdominal pain. <Christopher Madrigal D - 10/07/18 12:59> Results - Labs Result diagrams: 10/09/18 04:55 10/07/18 07:40 <Rina Lam R - 10/09/18 11:25> Abnormal lab results 10/09/18 Range/Units 04:55 RBC 3.46 L (4.50-5.90) mil/mm3 Hgb 10.7 L (13.0-17.0) gm/dL Hct 30.7 L (39.0-51.0) % Short CBC 10/09/18 Range/Units 04:55 WBC 5.9 (4.0-11.0) th/mm3 Hgb 10.7 L (13.0-17.0) gm/dL Hct 30.7 L (39.0-51.0) % Plt Count 358 (150-450) th/mm3 <Rina Lam R - 10/09/18 11:25> Abnormal lab results 10/07/18 10/07/18 Range/Units 07:40 07:40 RBC 3.59 L (4.50-5.90) mil/mm3 Hgb 11.5 L (13.0-17.0) gm/dL Hct 31.7 L (39.0-51.0) % MCHC 36.3 H (32.0-36.0) % MPV 6.9 L (7.0-11.0) fL Neut % (Auto) 70.2 H (16.0-70.0) % Myelocytes % (Man) 1 H (0-0) % Calcium 8.0 L (8.5-10.1) mg/dL Short CBC 10/07/18 Range/Units 07:40 WBC 8.8 (4.0-11.0) th/mm3 Hgb 11.5 L (13.0-17.0) gm/dL Hct 31.7 L (39.0-51.0) % Plt Count 396 (150-450) th/mm3 BMP 10/07/18 07:40 Sodium 141 Potassium 3.8 Chloride 105 Carbon Dioxide 30.3 BUN 10 Creatinine 0.84 Calcium 8.0 L <Christopher Madrigal D - 10/07/18 11:55> Physical Exam Vital signs: Vital Signs 10/08/18 12:00 10/08/18 14:45 10/08/18 16:00 Temperature 98.8 F 97.9 F Pulse Rate 68 60 Respiratory Rate 17 20 17 Blood Pressure 126/75 132/73 Pulse Oximetry 97 98 10/08/18 20:00 10/09/18 00:00 10/09/18 04:00 Temperature 98 F 97.4 F L 97.2 F L Pulse Rate 67 66 53 L Respiratory Rate 18 16 18 Blood Pressure 124/64 126/62 123/77 Pulse Oximetry 99 97 98 10/09/18 08:00 Temperature 97.9 F Pulse Rate 59 L Respiratory Rate 18 Blood Pressure 126/78 Pulse Oximetry 100 Intake & Output 10/08/18 10/09/18 10/09/18 18:59 06:59 18:59 Intake Total 940 / 940 850 / 850 50 / 50 Output Total 1999 1200 / 1200 Balance -1060 / -1060 -350 / -350 50 / 50 Weight 77.7 kg Intake: IV 100 / 100 50 / 50 50 / 50 Ancef 2 GM Premix Inj 2 gm In 100 / 100 50 / 50 50 / 50 50 ml @ 150 mls/hr IV.SIG Q8H [facility] Rx#:[id number] Oral 840 / 840 800 / 800 Output: Urine 1999 1200 / 1200 Other: Mode Setting Right Knee Continuous Date of Last Bowel Movement 10/08/18 # Bowel Movements 2 <Rina Lam R - 10/09/18 11:25> Vital Signs 10/06/18 12:00 10/06/18 13:00 10/06/18 16:00 Temperature 97.4 F L 97.6 F Pulse Rate 67 51 L 54 L Respiratory Rate 18 18 Blood Pressure 134/71 123/66 Pulse Oximetry 97 95 10/06/18 20:00 10/06/18 20:12 10/06/18 23:51 Temperature 97.6 F Pulse Rate 60 83 52 L Respiratory Rate 18 Blood Pressure 118/63 Pulse Oximetry 97 10/07/18 00:00 10/07/18 03:53 10/07/18 04:00 Temperature 97.8 F 97.9 F Pulse Rate 57 L 51 L 55 L Respiratory Rate 16 16 Blood Pressure 115/63 122/71 Pulse Oximetry 100 97 10/07/18 08:00 Temperature 98.0 F Pulse Rate 55 L Respiratory Rate 18 Blood Pressure 118/76 Pulse Oximetry 97 Intake & Output 10/06/18 10/07/18 10/07/18 18:59 06:59 18:59 Intake Total 1020 / 1020 900 / 900 300 / 300 Output Total 1000 / 1000 1500 / 1500 Balance 20 / 20 -600 / -600 300 / 300 Weight 73.9 kg Intake: IV 300 / 300 300 / 300 300 / 300 Zyvox 600 mg Premix 300 ML @ 300 / 300 300 / 300 300 / 300 300 mls/hr IV.SIG Q12H [facility] Rx#: [id number] Oral 720 / 720 600 / 600 Output: Urine 1000 / 1000 1500 / 1500 Other: Mode Setting Right Knee Continuous Continuous Continuous <Christopher Madrigal - 10/07/18 11:55> Narrative: GENERAL: Well-nourished well-developed, not in acute distress SKIN: Cool and dry, no generalized rash HEAD: Atraumatic. Normocephalic. No temporal or scalp tenderness. EYES: Pupils equal round and reactive. Scleral icterus. No injection or drainage. No petechia ENT: Nothing abnormal detected NECK: Trachea midline. Supple, nontender, no meningeal signs. CARDIOVASCULAR: Regular rate and rhythm, normal S1-S2, no murmurs/gallops/rubs RESPIRATORY: Clear to auscultation bilaterally. GASTROINTESTINAL: Abdomen soft nontender. MUSCULOSKELETAL: right knee wound vac in place draining serous sanguinous fluid. Knee some erythema. Mild tenderness to palpation. +2 discharge pedis pulses bilaterally. Normal range of motion. NEUROLOGICAL: Alert oriented 3. Nonfocal. Psych cooperative <Christopher Madrigal - 10/07/18 12:59> Assessment and Plan - Assessment (1) Cellulitis of right knee Code(s): L03.115 - Cellulitis of right lower limb Status: Inactive (2) Hepatitis C Code(s): B19.20 - Unspecified viral hepatitis C without hepatic coma Status: Acute (3) Nutrition, metabolism, and development symptoms Code(s): R63.8 - Other symptoms and signs concerning food and fluid intake Status: Acute <Rina Lam - 10/09/18 11:25> (1) Cellulitis of right knee Code(s): L03.115 - Cellulitis of right lower limb Status: Inactive Plan: Patient is a 42-year-old male with past medical history of IV drug use presenting to the ED with worsening right knee pain and swelling. Patient failed out patient treatment with Dalvance. Admitted for Right knee cellulitis with failed outpatient treatment. Prior ED encounter on 09/30 x-ray of the right knee showed: Prepatellar swelling , no acute bony abnormalities. On admission patient vital signs, CBC and CMP were within normal limits. On admission right knee erythema and swelling noted on exam with limited flexion due to pain. Erythema measured to be 10 x 8 cm. MRI: abscess vs bursitis; given edema cannot rule out osteomyelitis In the ED patient received IV vancomycin x1 Tylenol and Toradol for pain - Vital signs stable and pain well-controlled. -CBC WNL Infectious disease consulted, appreciate recommendations -Zyvox IV until Dalvance elimination life reached -BCX NG to date -Wound gram stain G+ cocci; CX pending -ID consult: GC and chlamydia, HIV, hep C labs -echo pending -Ortho consult: Status post irrigation and debridement, incision and drainage, and application of wound VAC on 10/06; cultures: Growing staph aureus (2) Hepatitis C Code(s): B19.20 - Unspecified viral hepatitis C without hepatic coma Status: Acute Plan: Diagnosed with Hep C during admission. -RNA PCR pending -HIV and hep B non-reactive -appreciate ID recommendations (3) Nutrition, metabolism, and development symptoms Code(s): R63.8 - Other symptoms and signs concerning food and fluid intake Status: Acute Plan: Fluids: not indicated at this time Electrolytes: Replete as needed Diet: Regular diet DVT prophylaxis: Lovenox SQ <Christopher Madrigal D - 10/07/18 12:47> - Attending Attestation This patient was seen and examined. The assessment and plan was discussed with the resident physician and I am in agreement with continued medical care as documented in this encounter. RINA LAM MD <Rina Lam - 10/09/18 11:25>
--- NOTE | 2018-10-07 13:54 | P.PNID ---
Subjective Remarks: Mr. Ernst is a 42-year-old male with past medical history significant for IV drug abuse with prior history of multiple skin abscesses. Patient denies any prior history of endocarditis or epidural abscesses. Patient presented to the emergency department on September 30, 2018 for right knee pain and swelling. At that time he was thought to have cellulitis and was given 1 dose of dalbavancin which is an extended release Lipoglycoprotein like vancomycin IV and asked to return for reassessment in 2 days. Patient returned on 10/04/2018 and was admitted due to worsening pain and swelling. Knee pain worst with weight bearing, however still able to ambulate. He denies fever, chills , n/v, dizziness, back pain, cp or sob. Patient also noticed pus-like drainage from knee last night but denies increase in erythema. Of note patient uses IV heroin and meth, last used 3 days ago. He reports he only injects on both arms. Denies any pain elsewhere in his body. He denies any injection at knee likely hematogenous dissemination will need endovascular workup. ID consulted for evaluation and Mment of patellar abscess and possible right knee septic arthritis. Notes reviewed Temps ok C/O pain Had surgery yesterday - septic prepatellar bursitis; has wound vac in place C/S 10/05 MSSA BC negative Antibiotics: Zyvox Lines: PIV Past Medical History: Hep C Back surgery Allergies/Adverse Reactions: Allergies No Known Allergies Allergy (Unverified 10/04/18 10:47) Objective Vital Signs 10/06/18 16:00 10/06/18 20:00 10/06/18 20:12 Temperature 97.6 F 97.6 F Pulse Rate 54 L 60 83 Respiratory Rate 18 Blood Pressure 123/66 118/63 Pulse Oximetry 95 97 10/06/18 23:51 10/07/18 00:00 10/07/18 03:53 Temperature 97.8 F Pulse Rate 52 L 57 L 51 L Respiratory Rate 16 Blood Pressure 115/63 Pulse Oximetry 100 10/07/18 04:00 10/07/18 08:00 10/07/18 12:00 Temperature 97.9 F 98.0 F 97.5 F L Pulse Rate 55 L 55 L 62 Respiratory Rate 16 18 18 Blood Pressure 122/71 118/76 123/64 Pulse Oximetry 97 97 97 Intake & Output 10/06/18 10/07/18 10/07/18 18:59 06:59 18:59 Intake Total 1020 / 1020 900 / 900 300 / 300 Output Total 1000 / 1000 1500 / 1500 Balance -600 / -600 300 / 300 Weight 73.9 kg Intake: IV 300 / 300 300 / 300 300 / 300 Zyvox 600 mg Premix 300 ML @ 300 / 300 300 / 300 300 / 300 300 mls/hr IV.SIG Q12H RAKESH Rx#: [id number] Oral 720 / 720 600 / 600 Output: Urine 1000 / 1000 1500 / 1500 Other: Mode Setting Right Knee Continuous Continuous Continuous 10/06/18 08:29 Wound - Knee Gram Stain - Final 10/06/18 08:29 Wound - Knee Wound Culture - Preliminary Staphylococcus aureus 10/05/18 07:17 Blood - Peripheral Aerobic Blood Culture - Preliminary No growth in 2 days 10/05/18 07:17 Blood - Peripheral Anaerobic Blood Culture - Preliminary No growth in 2 days 10/05/18 07:13 Blood - Peripheral Aerobic Blood Culture - Preliminary No growth in 2 days 10/05/18 07:13 Blood - Peripheral Anaerobic Blood Culture - Preliminary No growth in 2 days 10/05/18 10:15 Wound - Knee Gram Stain - Final 10/05/18 10:15 Wound - Knee Wound Culture - Final Staphylococcus aureus 10/06/18 08:29 Wound - Knee Fungal Smear - Pending 10/06/18 08:29 Wound - Knee Fungal Culture - Pending 10/06/18 08:29 Wound - Knee Acid Fast Bacilli Smear - Pending 10/06/18 08:29 Wound - Knee Mycobacterial Culture - Pending Lab - Hematology Results 10/06/18 10/07/18 05:48 07:40 WBC 5.6 8.8 RBC 4.09 L 3.59 L Hgb 12.4 L 11.5 L Hct 36.9 L 31.7 L MCV 90.1 88.3 MCH 30.4 32.0 MCHC 33.8 36.3 H RDW 12.9 12.9 Plt Count 397 396 MPV 7.1 6.9 L Prelim Diff (Auto) Slide review pending Neut % (Auto) 65.2 70.2 H Lymph % (Auto) 25.9 22.2 [place] % (Auto) 5.8 6.6 Eos % (Auto) 2.5 0.7 Baso % (Auto) 0.6 0.3 Neut # (Auto) 3.6 6.2 Lymph # (Auto) 1.4 2.0 [place] # (Auto) 0.3 0.6 Eos # (Auto) 0.1 0.1 Baso # (Auto) 0.0 0.0 WBC Differential . Manual diff final Seg Neuts % (Manual) 66 Band Neuts % (Manual) 1 Lymphocytes % (Manual) 23 Monocytes % (Manual) 8 Eosinophils % (Manual) 1 Myelocytes % (Man) 1 H Abs Neuts (Manual) 6.0 Differential Comment Auto diff final . Platelet Estimate Normal Platelet Morphology Normal RBC Morphology Normal Lab - Chemistry Results 10/06/18 10/07/18 05:48 07:40 Sodium 142 141 Potassium 4.0 3.8 Chloride 107 105 Carbon Dioxide 26.3 30.3 Anion Gap 9 6 BUN 6 L 10 Creatinine 0.77 0.84 Estimated GFR Greater than 89 Greater than 89 Random Glucose 82 83 Calcium 8.2 L 8.0 L Imaging: ITS Impressions Knee MRI 10/04/18 00:00 CONCLUSION: 1. Probable prepatellar abscess or bursitis with complex rim-enhancing fluid collection present. There is surrounding cellulitis. There is some mild marrow edema in the medial femoral condyle and patella with questionable enhancement postcontrast. Cannot exclude early osteomyelitis. Small knee joint effusion. Ligaments and menisci intact. Physical Exam: GENERAL: awake and alert, not in respiratory distress SKIN: Cool and dry, no generalized rash HEAD: Atraumatic. Normocephalic. No temporal or scalp tenderness. EYES: Pupils equal round and reactive. Scleral icterus. No injection or drainage. No petechia ENT:No nasal drainage, moist oral mucosa NECK: Trachea midline. Supple, nontender, no meningeal signs. CARDIOVASCULAR: HS audible. RESPIRATORY: Clear to auscultation bilaterally. GASTROINTESTINAL: Abdomen soft nontender. MUSCULOSKELETAL: Right knee with wound vac in place, has periwound erythema and induration which looks better. No calf tenderness NEUROLOGICAL: Alert oriented 3. Nonfocal. Psych cooperative IV line sites ok. Assessment and Plan - Plan Right knee patellar abscess/bursitis Cellulitis R knee IVDA H/o Hep C Shares needles consented to HIV Hepatitis testing. h/o skin abscesses in past. Recs: Patient has received Dalbavancin please dont give any more Vanco IV as it can be nephrotoxic. Change Zyvox IV to ANcef. Follow C/S 2D ECHO to r.o endocarditis. Follow other serology testing. Monitor progress
--- NOTE | 2018-10-07 14:53 | P.PNOP ---
Subjective Interval history: painful knee Physical Exam Vital signs: Vital Signs 10/06/18 16:00 10/06/18 20:00 10/06/18 20:12 Temperature 97.6 F 97.6 F Pulse Rate 54 L 60 83 Respiratory Rate 18 18 Blood Pressure 123/66 118/63 Pulse Oximetry 95 97 10/06/18 23:51 10/07/18 00:00 10/07/18 03:53 Temperature 97.8 F Pulse Rate 52 L 57 L 51 L Respiratory Rate 16 Blood Pressure 115/63 Pulse Oximetry 100 10/07/18 04:00 10/07/18 08:00 10/07/18 12:00 Temperature 97.9 F 98.0 F 97.5 F L Pulse Rate 55 L 55 L 61 Respiratory Rate 16 18 18 Blood Pressure 122/71 118/76 123/64 Pulse Oximetry 97 97 97 Intake & Output 10/06/18 10/07/18 10/07/18 18:59 06:59 18:59 Intake Total 1020 / 1020 900 / 900 300 / 300 Output Total 1000 / 1000 1500 / 1500 Balance -600 / -600 300 / 300 Weight 73.9 kg Intake: IV 300 / 300 300 / 300 300 / 300 Zyvox 600 mg Premix 300 ML @ 300 / 300 300 / 300 300 / 300 300 mls/hr IV.SIG Q12H RAKESH Rx#: [id number] Oral 720 / 720 600 / 600 Output: Urine 1000 / 1000 1500 / 1500 Other: Mode Setting Right Knee Continuous Continuous Continuous Narrative: in bed, nad wound vac intact neg homans nvi Results - Labs CBC & Chem 7: 10/07/18 07:40 10/07/18 07:40 Laboratory Results - last 24 hr 10/07/18 10/07/18 07:40 07:40 WBC 8.8 RBC 3.59 L Hgb 11.5 L Hct 31.7 L MCV 88.3 MCH 32.0 MCHC 36.3 H RDW 12.9 Plt Count 396 MPV 6.9 L Prelim Diff (Auto) Slide review pending Neut % (Auto) 70.2 H Lymph % (Auto) 22.2 [place] % (Auto) 6.6 Eos % (Auto) 0.7 Baso % (Auto) 0.3 Neut # (Auto) 6.2 Lymph # (Auto) 2.0 [place] # (Auto) 0.6 Eos # (Auto) 0.1 Baso # (Auto) 0.0 WBC Differential Manual diff final Seg Neuts % (Manual) 66 Band Neuts % (Manual) 1 Lymphocytes % (Manual) 23 Monocytes % (Manual) 8 Eosinophils % (Manual) 1 Myelocytes % (Man) 1 H Abs Neuts (Manual) 6.0 Differential Comment . Platelet Estimate Normal Platelet Morphology Normal RBC Morphology Normal Sodium 141 Potassium 3.8 Chloride 105 Carbon Dioxide 30.3 Anion Gap 6 BUN 10 Creatinine 0.84 Estimated GFR Greater than 89 Random Glucose 83 Calcium 8.0 L Microbiology 10/06/18 08:29 Wound - Knee Gram Stain - Final 10/06/18 08:29 Wound - Knee Wound Culture - Preliminary Staphylococcus aureus 10/05/18 07:17 Blood - Peripheral Aerobic Blood Culture - Preliminary No growth in 2 days 10/05/18 07:17 Blood - Peripheral Anaerobic Blood Culture - Preliminary No growth in 2 days 10/05/18 07:13 Blood - Peripheral Aerobic Blood Culture - Preliminary No growth in 2 days 10/05/18 07:13 Blood - Peripheral Anaerobic Blood Culture - Preliminary No growth in 2 days 10/05/18 10:15 Wound - Knee Gram Stain - Final 10/05/18 10:15 Wound - Knee Wound Culture - Final Staphylococcus aureus Assessment and Plan - Ortho Post Op Day # 1 - Assessment and Plan s/p I&D R knee with spencer of wound vac POD#1 (09/05/18) wbat wound vac changes m/w/f abx per ID
[2018-10-07] MEDS: Enoxaparin Inj 30 MG/0.3 ML Syringe SQ SCH (15:01)
[2018-10-07] MEDS: ceFAZolin 2 GM Premix Inj 2 GM/50 ML PIGGYBACK IV.SIG SCH (15:03)
[2018-10-07] MEDS ORDERED: ceFAZolin Inj 2,000 MG in Sodium Chlor 0.9% Inj 80 ML IV.SIG SCH (16:00)
[2018-10-08] MEDS: ceFAZolin 2 GM Premix Inj 2 GM/50 ML PIGGYBACK IV.SIG SCH ×3 (00:07→16:13)
[2018-10-08] MEDS: Ketorolac 10 MG Tablet PO PRN (06:45)
[2018-10-08 09:06] LABS: Baso % (Auto) 0.8 % (0.0-2.0); Eos # (Auto) 0.1 th/mm3 (0.0-0.4); Eos % (Auto) 1.8 % (0.0-4.0); Hematocrit 30.8 % (39.0-51.0); Hemoglobin 10.7 gm/dL (13.0-17.0); Lymph # (Auto) 1.3 th/mm3 (1.0-4.8); Lymph % (Auto) 27.1 % (9.0-44.0); Mean Corpuscular HGB Conc 34.8 % (32.0-36.0); Mean Corpuscular Hemoglobin 31.1 pg (27.0-34.0); Mean Corpuscular Volume 89.3 fL (80.0-100.0); Mean Platelet Volume 6.9 fL (7.0-11.0); Mono # (Auto) 0.4 th/mm3 (0.0-0.9); Mono % (Auto) 7.3 % (0.0-8.0); Neut # (Auto) 3.1 th/mm3 (1.8-7.7); Platelet Count 382 th/mm3 (150-450); Red Blood Count 3.46 mil/mm3 (4.50-5.90); Red Cell Distribution Width 13.4 % (11.6-17.2); White Blood Count 4.9 th/mm3 (4.0-11.0)
[2018-10-08] MEDS: Senna/Docusate Sodium 8.6/50 MG Tablet PO SCH ×2 (10:01→20:10)
[2018-10-08] MEDS: Sodium Chloride 0.9% 2 ML Flush BID IV.FLUSH SCH ×2 (10:18→20:10)
[2018-10-08] MEDS ORDERED: Ketorolac Inj 30 MG/ML (IVP) Vial IV.PUSH ONE (10:30)
--- NOTE | 2018-10-08 12:08 | P.PNFP ---
Subjective Interval history: Patient states he slept well overnight. He is still having pain that is relieved with the morphine.. The pain is worse since he has been up and ambulating to the bathroom. He denies any chest pain, shortness of breath, fevers, calf pain. <Aliya Frazier - 10/08/18 12:07> Results - Labs Result diagrams: 10/09/18 04:55 10/07/18 07:40 <Rina Lam - 10/09/18 11:33> Abnormal lab results 10/09/18 Range/Units 04:55 RBC 3.46 L (4.50-5.90) mil/mm3 Hgb 10.7 L (13.0-17.0) gm/dL Hct 30.7 L (39.0-51.0) % Short CBC 10/09/18 Range/Units 04:55 WBC 5.9 (4.0-11.0) th/mm3 Hgb 10.7 L (13.0-17.0) gm/dL Hct 30.7 L (39.0-51.0) % Plt Count 358 (150-450) th/mm3 <Rina Lam - 10/09/18 11:33> Abnormal lab results 10/08/18 Range/Units 08:17 RBC 3.46 L (4.50-5.90) mil/mm3 Hgb 10.7 L (13.0-17.0) gm/dL Hct 30.8 L (39.0-51.0) % MPV 6.9 L (7.0-11.0) fL Short CBC 10/08/18 Range/Units 08:17 WBC 4.9 (4.0-11.0) th/mm3 Hgb 10.7 L (13.0-17.0) gm/dL Hct 30.8 L (39.0-51.0) % Plt Count 382 (150-450) th/mm3 <Aliya Frazier - 10/08/18 12:07> Physical Exam Vital signs: Vital Signs 10/08/18 12:00 10/08/18 14:45 10/08/18 16:00 Temperature 98.8 F 97.9 F Pulse Rate 68 60 Respiratory Rate 17 20 17 Blood Pressure 126/75 132/73 Pulse Oximetry 97 98 10/08/18 20:00 10/09/18 00:00 10/09/18 04:00 Temperature 98 F 97.4 F L 97.2 F L Pulse Rate 67 66 53 L Respiratory Rate 18 16 18 Blood Pressure 124/64 126/62 123/77 Pulse Oximetry 99 97 98 10/09/18 08:00 Temperature 97.9 F Pulse Rate 59 L Respiratory Rate 18 Blood Pressure 126/78 Pulse Oximetry 100 Intake & Output 10/08/18 10/09/18 10/09/18 18:59 06:59 18:59 Intake Total 940 / 940 850 / 850 50 / 50 Output Total 1999 1200 / 1200 Balance -1060 / -1060 -350 / -350 50 / 50 Weight 77.7 kg Intake: IV 100 / 100 50 / 50 50 / 50 Ancef 2 GM Premix Inj 2 gm In 100 / 100 50 / 50 50 / 50 50 ml @ 150 mls/hr IV.SIG Q8H RAKESH Rx#:[id number] Oral 840 / 840 800 / 800 Output: Urine 1999 1200 / 1200 Other: Mode Setting Right Knee Continuous Date of Last Bowel Movement 10/08/18 # Bowel Movements 2 <Rina Lam R - 10/09/18 11:33> Vital Signs 10/07/18 16:00 10/07/18 19:27 10/07/18 20:00 Temperature 98.1 F 98.0 F Pulse Rate 63 65 73 Respiratory Rate 18 16 16 Blood Pressure 129/77 117/61 Pulse Oximetry 97 96 10/08/18 00:00 10/08/18 00:03 10/08/18 04:00 Temperature 97.7 F 98.7 F Pulse Rate 55 L 54 L 55 L Respiratory Rate 16 16 Blood Pressure 126/59 L 116/66 Pulse Oximetry 98 99 10/08/18 08:00 Temperature 97.9 F Pulse Rate 61 Respiratory Rate 17 Blood Pressure 132/75 Pulse Oximetry 99 Intake & Output 10/07/18 10/08/18 10/08/18 18:59 06:59 18:59 Intake Total 1070 / 1070 50 / 50 50 / 50 Output Total 1000 / 1000 3500 / 3500 Balance 70 / 70 -3450 / -3450 50 / 50 Intake: IV 350 / 350 50 / 50 50 / 50 Zyvox 600 mg Premix 300 ML @ 300 / 300 300 mls/hr IV.SIG Q12H RAKESH Rx#: [id number] Ancef 2 GM Premix Inj 2 gm In 50 / 50 50 / 50 50 / 50 50 ml @ 150 mls/hr IV.SIG Q8H RAKESH Rx#:[id number] Oral 720 / 720 Output: Urine 1000 / 1000 3500 / 3500 Other: Mode Setting Right Knee Continuous Continuous Continuous <Aliya Frazier Dmoinick - 10/08/18 12:07> Narrative: GENERAL: Well-nourished well-developed, not in acute distress SKIN: Cool and dry, no generalized rash HEAD: Atraumatic. Normocephalic. No temporal or scalp tenderness. EYES: Pupils equal round and reactive. Scleral icterus. No injection or drainage. No petechia ENT: Nothing abnormal detected NECK: Trachea midline. Supple, nontender, no meningeal signs. CARDIOVASCULAR: Regular rate and rhythm, normal S1-S2, no murmurs/gallops/rubs RESPIRATORY: Clear to auscultation bilaterally. GASTROINTESTINAL: Abdomen soft nontender. MUSCULOSKELETAL: right knee wound vac in place draining serous sanguinous fluid. Knee some erythema but improved from yesterday. Mild tenderness to palpation. +2 discharge pedis pulses bilaterally. Normal range of motion. NEUROLOGICAL: Alert oriented 3. Nonfocal. Psych cooperative <Aliya Frazier Dominick - 10/08/18 12:07> Assessment and Plan - Assessment (1) Cellulitis of right knee Code(s): L03.115 - Cellulitis of right lower limb Status: Inactive (2) Hepatitis C Code(s): B19.20 - Unspecified viral hepatitis C without hepatic coma Status: Acute (3) Nutrition, metabolism, and development symptoms Code(s): R63.8 - Other symptoms and signs concerning food and fluid intake Status: Acute <Rina Lam - 10/09/18 11:33> (1) Cellulitis of right knee Code(s): L03.115 - Cellulitis of right lower limb Status: Inactive Plan: Patient is a 42-year-old male with past medical history of IV drug use presenting to the ED with worsening right knee pain and swelling. Patient failed out patient treatment with Dalvance. Admitted for Right knee cellulitis with failed outpatient treatment. Prior ED encounter on 09/30 x-ray of the right knee showed: Prepatellar swelling , no acute bony abnormalities. On admission patient vital signs, CBC and CMP were within normal limits. On admission right knee erythema and swelling noted on exam with limited flexion due to pain. Erythema measured to be 10 x 8 cm. MRI: abscess vs bursitis; given edema cannot rule out osteomyelitis In the ED patient received IV vancomycin x1 Tylenol and Toradol for pain with morphine for breakthrough (decreased from 4mg to 2 mg) - Vital signs stable and pain well-controlled. -CBC WNL Infectious disease consulted, appreciate recommendations -Zyvox IV switched to ancef until Dalvance elimination life reached -BCX NG to date -Wound cx staph aureus -ID consult: GC and chlamydia neg, HIV neg, hep C labs RNA pending -echo pending -Ortho consult: Status post irrigation and debridement, incision and drainage, and application of wound VAC on 10/06; cultures: Growing staph aureus; wound vac change M/W/F (2) Hepatitis C Code(s): B19.20 - Unspecified viral hepatitis C without hepatic coma Status: Acute Plan: Diagnosed with Hep C during admission. -RNA PCR pending -HIV and hep B non-reactive -appreciate ID recommendations (3) Nutrition, metabolism, and development symptoms Code(s): R63.8 - Other symptoms and signs concerning food and fluid intake Status: Acute Plan: Fluids: not indicated at this time Electrolytes: Replete as needed Diet: Regular diet DVT prophylaxis: Lovenox SQ <Aliya Frazier - 10/08/18 12:02> - Attending Attestation This patient was seen and examined. The assessment and plan was discussed with the resident physician and I am in agreement with continued medical care as documented in this encounter. RINA LAM MD <Rina Lam - 10/09/18 11:33>
--- NOTE | 2018-10-08 13:27 | ECHRPT ---
Indication: sepsis poss endocarditis CONCLUSIONS Normal left ventricular size. Wall thickness is normal. The left ventricular systolic function is normal with an estimated ejection fraction in the range of 55-60%. Trace mitral valve regurgitation. There is mild tricuspid valve regurgitation. There is estimated mild pulmonary hypertension present (range 40-50 mmHg). BP: / HR: Rhythm: MEASUREMENTS (Male / Female) Normal Values Technical Quality: 2D ECHO LV Diastolic Diameter PLAX 5.2 cm 4.2 - 5.9 / 3.9 - 5.3 cm LV Systolic Diameter PLAX 4.0 cm IVS Diastolic Thickness 0.8 cm 0.6 - 1.0 / 0.6 - 0.9 cm LVPW Diastolic Thickness 1.0 cm 0.6 - 1.0 / 0.6 - 0.9 cm LV Relative Wall Thickness 0.3 RV Internal Dim ED PLAX 3.0 cm LVOT Diameter 2.2 cm Aortic Root Diameter 3.1 cm LA Systolic Diameter LX 3.7 cm 3.0 - 4.0 / 2.7 - 3.8 cm LV Ejection Fraction MOD BP 64.2 % >= 55 % LV Ejection Fraction MOD 4C 56.3 % LV Ejection Fraction 4C AL 57.8 % LV Ejection Fraction MOD 2C 69.7 % LV Ejection Fraction 2C AL 71.4 % M-MODE Aortic Root Diameter MM 4.0 cm LA Systolic Diameter MM 3.8 cm LA Ao Ratio MM 0.9 AV Cusp Separation MM 2.4 cm DOPPLER AV Peak Velocity 130.0 cm/s AV Peak Gradient 6.8 mmHg LVOT Peak Velocity 106.0 cm/s LVOT Peak Gradient 4.5 mmHg AV Area Cont Eq pk 3.1 cm Mitral E Point Velocity 75.5 cm/s Mitral A Point Velocity 69.1 cm/s Mitral E to A Ratio 1.1 LV E' Lateral Velocity 11.6 cm/s Mitral E to LV E' Lateral Ratio 6.5 LV E' Septal Velocity 10.3 cm/s Mitral E to LV E' Septal Ratio 7.3 TR Peak Velocity 282.0 cm/s TR Peak Gradient 31.8 mmHg Right Atrial Pressure 10.0 mmHg Pulmonary Artery Systolic Pressu 41.8 mmHg Right Ventricular Systolic Press 41.8 mmHg PV Peak Velocity 137.0 cm/s PV Peak Gradient 7.5 mmHg FINDINGS LEFT VENTRICLE Normal left ventricular size. Wall thickness is normal. The left ventricular systolic function is normal with an estimated ejection fraction in the range of 55-60%. RIGHT VENTRICLE Normal right ventricular size and systolic function. LEFT ATRIUM The left atrial size is normal. RIGHT ATRIUM The right atrial size is normal. ATRIAL SEPTUM Normal atrial septal thickness without atrial level shunting by limited color doppler interrogation. AORTA The aortic root and proximal ascending aorta are normal in size on limited imaging. MITRAL VALVE Trace mitral valve regurgitation. AORTIC VALVE Trileaflet aortic valve. No aortic valve stenosis or regurgitation. TRICUSPID VALVE There is mild tricuspid valve regurgitation. There is estimated mild pulmonary hypertension present (range 40-50 mmHg). PULMONARY VALVE No pulmonary valve regurgitation or stenosis. VESSELS The inferior vena cava is normal in size. PERICARDIUM No pericardial effusion. Angeline Titus MD, FACC (Electronically Signed) Final Date:08 October 2018 13:26
--- NOTE | 2018-10-08 13:58 | P.PNID ---
Subjective Remarks: Mr. Ernst is a 42-year-old male with past medical history significant for IV drug abuse with prior history of multiple skin abscesses. Patient denies any prior history of endocarditis or epidural abscesses. Patient presented to the emergency department on September 30, 2018 for right knee pain and swelling. At that time he was thought to have cellulitis and was given 1 dose of dalbavancin which is an extended release Lipoglycoprotein like vancomycin IV and asked to return for reassessment in 2 days. Patient returned on 10/04/2018 and was admitted due to worsening pain and swelling. Knee pain worst with weight bearing, however still able to ambulate. He denies fever, chills , n/v, dizziness, back pain, cp or sob. Patient also noticed pus-like drainage from knee last night but denies increase in erythema. Of note patient uses IV heroin and meth, last used 3 days ago. He reports he only injects on both arms. Denies any pain elsewhere in his body. He denies any injection at knee likely hematogenous dissemination will need endovascular workup. ID consulted for evaluation and Mment of patellar abscess and possible right knee septic arthritis. Notes reviewed Temps ok C/O pain Says " I think I am in withdrawal. I am sick from being in here" Had surgery over weekend. Post note reviewed - septic prepatellar bursitis; has wound vac in place C/S 10/05 MSSA BC negative ECHO negative Antibiotics: Ancef IV Lines: PIV Past Medical History: Hep C Back surgery Allergies/Adverse Reactions: Allergies No Known Allergies Allergy (Unverified 10/04/18 10:47) Objective Vital Signs 10/07/18 16:00 10/07/18 19:27 10/07/18 20:00 Temperature 98.1 F 98.0 F Pulse Rate 63 65 73 Respiratory Rate 18 16 16 Blood Pressure 129/77 117/61 Pulse Oximetry 97 96 10/08/18 00:00 10/08/18 00:03 10/08/18 04:00 Temperature 97.7 F 98.7 F Pulse Rate 55 L 54 L 55 L Respiratory Rate 16 16 Blood Pressure 126/59 L 116/66 Pulse Oximetry 98 99 10/08/18 08:00 10/08/18 12:00 Temperature 97.9 F 98.8 F Pulse Rate 61 67 Respiratory Rate 17 17 Blood Pressure 132/75 126/75 Pulse Oximetry 99 97 Intake & Output 10/07/18 10/08/18 10/08/18 18:59 06:59 18:59 Intake Total 1070 / 1070 50 / 50 50 / 50 Output Total 1000 / 1000 3500 / 3500 Balance 70 / 70 -3450 / -3450 50 / 50 Intake: IV 350 / 350 50 / 50 50 / 50 Zyvox 600 mg Premix 300 ML @ 300 / 300 300 mls/hr IV.SIG Q12H [facility] Rx#: [id number] Ancef 2 GM Premix Inj 2 gm In 50 / 50 50 / 50 50 / 50 50 ml @ 150 mls/hr IV.SIG Q8H [facility] Rx#:[id number] Oral 720 / 720 Output: Urine 1000 / 1000 3500 / 3500 Other: Mode Setting Right Knee Continuous Continuous Continuous 10/06/18 08:29 Wound - Knee Fungal Smear - Final No fungal elements seen 10/06/18 08:29 Wound - Knee Fungal Culture - Pending 10/06/18 08:29 Wound - Knee Gram Stain - Final 10/06/18 08:29 Wound - Knee Wound Culture - Final Staphylococcus aureus 10/05/18 07:17 Blood - Peripheral Aerobic Blood Culture - Preliminary No growth in 3 days 10/05/18 07:17 Blood - Peripheral Anaerobic Blood Culture - Preliminary No growth in 3 days 10/05/18 07:13 Blood - Peripheral Aerobic Blood Culture - Preliminary No growth in 3 days 10/05/18 07:13 Blood - Peripheral Anaerobic Blood Culture - Preliminary No growth in 3 days 10/05/18 10:15 Wound - Knee Gram Stain - Final 10/05/18 10:15 Wound - Knee Wound Culture - Final Staphylococcus aureus 10/06/18 08:29 Wound - Knee Acid Fast Bacilli Smear - Pending 10/06/18 08:29 Wound - Knee Mycobacterial Culture - Pending Lab - Hematology Results 10/07/18 10/08/18 07:40 08:17 WBC 8.8 4.9 RBC 3.59 L 3.46 L Hgb 11.5 L 10.7 L Hct 31.7 L 30.8 L MCV 88.3 89.3 MCH 32.0 31.1 MCHC 36.3 H 34.8 RDW 12.9 13.4 Plt Count 396 382 MPV 6.9 L 6.9 L Prelim Diff (Auto) Slide review pending Neut % (Auto) 70.2 H 63.0 Lymph % (Auto) 22.2 27.1 [place] % (Auto) 6.6 7.3 Eos % (Auto) 0.7 1.8 Baso % (Auto) 0.3 0.8 Neut # (Auto) 6.2 3.1 Lymph # (Auto) 2.0 1.3 [place] # (Auto) 0.6 0.4 Eos # (Auto) 0.1 0.1 Baso # (Auto) 0.0 0.0 WBC Differential Manual diff final . Seg Neuts % (Manual) 66 Band Neuts % (Manual) 1 Lymphocytes % (Manual) 23 Monocytes % (Manual) 8 Eosinophils % (Manual) 1 Myelocytes % (Man) 1 H Abs Neuts (Manual) 6.0 Differential Comment . Auto diff final Platelet Estimate Normal Platelet Morphology Normal RBC Morphology Normal Lab - Chemistry Results 10/07/18 07:40 Sodium 141 Potassium 3.8 Chloride 105 Carbon Dioxide 30.3 Anion Gap 6 BUN 10 Creatinine 0.84 Estimated GFR Greater than 89 Random Glucose 83 Calcium 8.0 L Imaging: ITS Impressions Knee MRI 10/04/18 00:00 CONCLUSION: 1. Probable prepatellar abscess or bursitis with complex rim-enhancing fluid collection present. There is surrounding cellulitis. There is some mild marrow edema in the medial femoral condyle and patella with questionable enhancement postcontrast. Cannot exclude early osteomyelitis. Small knee joint effusion. Ligaments and menisci intact. Physical Exam: GENERAL: awake and alert, not in respiratory distress SKIN: Cool and dry, no generalized rash HEAD: Atraumatic. Normocephalic. No temporal or scalp tenderness. EYES: Pupils equal round and reactive. Scleral icterus. No injection or drainage. No petechia ENT:No nasal drainage, moist oral mucosa NECK: Trachea midline. Supple, nontender, no meningeal signs. CARDIOVASCULAR: HS audible. RESPIRATORY: Clear to auscultation bilaterally. GASTROINTESTINAL: Abdomen soft nontender. MUSCULOSKELETAL: Right knee with wound vac in place, has periwound erythema and induration which looks better. No calf tenderness NEUROLOGICAL: Alert oriented 3. Nonfocal. Psych cooperative IV line sites ok. Assessment and Plan - Plan Right knee patellar abscess/bursitis MSSA infection Cellulitis R knee IVDA H/o Hep C Shares needles consented to HIV Hepatitis testing. h/o skin abscesses in past. Recs: Patient has received Dalbavancin please dont give any more Vanco IV as it can be nephrotoxic. Continue IV Ancef. Follow C/S 2D ECHO to r.o endocarditis. Follow other serology testing. Monitor progress.
[2018-10-08] MEDS: Morphine Sulfate Inj 2 MG/ML Vial IV.PUSH PRN ×3 (14:42→22:39)
[2018-10-08] MEDS: Ketorolac 10 MG Tablet PO SCH ×2 (16:12→21:32)
[2018-10-08] MEDS: Enoxaparin Inj 40 MG/0.4 ML Syringe SQ SCH (16:13)
[2018-10-09] MEDS: ceFAZolin 2 GM Premix Inj 2 GM/50 ML PIGGYBACK IV.SIG SCH ×4 (00:29→23:45)
[2018-10-09] MEDS: Ketorolac 10 MG Tablet PO SCH ×2 (05:20→10:54)
[2018-10-09 07:38] LABS: Baso % (Auto) 0.8 % (0.0-2.0); Eos # (Auto) 0.2 th/mm3 (0.0-0.4); Eos % (Auto) 2.9 % (0.0-4.0); Hematocrit 30.7 % (39.0-51.0); Hemoglobin 10.7 gm/dL (13.0-17.0); Lymph # (Auto) 1.9 th/mm3 (1.0-4.8); Lymph % (Auto) 31.8 % (9.0-44.0); Mean Corpuscular HGB Conc 34.7 % (32.0-36.0); Mean Corpuscular Hemoglobin 30.8 pg (27.0-34.0); Mean Corpuscular Volume 88.9 fL (80.0-100.0); Mean Platelet Volume 7.2 fL (7.0-11.0); Mono # (Auto) 0.4 th/mm3 (0.0-0.9); Mono % (Auto) 7.2 % (0.0-8.0); Neut # (Auto) 3.4 th/mm3 (1.8-7.7); Neut % (Auto) 57.3 % (16.0-70.0); Platelet Count 358 th/mm3 (150-450); Red Blood Count 3.46 mil/mm3 (4.50-5.90); Red Cell Distribution Width 13.5 % (11.6-17.2); White Blood Count 5.9 th/mm3 (4.0-11.0)
[2018-10-09] MEDS: Morphine Sulfate Inj 2 MG/ML Vial IV.PUSH PRN ×6 (08:09→23:45)
[2018-10-09] MEDS: Senna/Docusate Sodium 8.6/50 MG Tablet PO SCH ×2 (08:16→21:00)
[2018-10-09] MEDS: Sodium Chloride 0.9% 2 ML Flush BID IV.FLUSH SCH ×2 (08:16→21:00)
--- NOTE | 2018-10-09 11:30 | P.PNFP ---
Subjective Interval history: No acute events overnight. Remains afebrile, vitals stable. Patient seen and examined this AM. He has complaints of worsening pain when having his gautam bandage re-wrapped. He otherwise states his pain is stable. Denies fevers, CP, dyspnea. Endorses mild cold-chills. Otherwise does not report specific complaints or concerns. <Partha Tate - 10/09/18 11:30> Results - Labs Result diagrams: 10/09/18 04:55 10/07/18 07:40 <Rina Lam - 10/09/18 12:39> Abnormal lab results 10/09/18 Range/Units 04:55 RBC 3.46 L (4.50-5.90) mil/mm3 Hgb 10.7 L (13.0-17.0) gm/dL Hct 30.7 L (39.0-51.0) % Short CBC 10/09/18 Range/Units 04:55 WBC 5.9 (4.0-11.0) th/mm3 Hgb 10.7 L (13.0-17.0) gm/dL Hct 30.7 L (39.0-51.0) % Plt Count 358 (150-450) th/mm3 <Rina Lam - 10/09/18 12:39> Abnormal lab results 10/09/18 Range/Units 04:55 RBC 3.46 L (4.50-5.90) mil/mm3 Hgb 10.7 L (13.0-17.0) gm/dL Hct 30.7 L (39.0-51.0) % Short CBC 10/09/18 Range/Units 04:55 WBC 5.9 (4.0-11.0) th/mm3 Hgb 10.7 L (13.0-17.0) gm/dL Hct 30.7 L (39.0-51.0) % Plt Count 358 (150-450) th/mm3 <Partha Tate - 10/09/18 11:30> Physical Exam Vital signs: Vital Signs 10/08/18 14:45 10/08/18 16:00 10/08/18 20:00 Temperature 97.9 F 98 F Pulse Rate 60 67 Respiratory Rate 20 17 18 Blood Pressure 132/73 124/64 Pulse Oximetry 98 99 10/09/18 00:00 10/09/18 04:00 10/09/18 08:00 Temperature 97.4 F L 97.2 F L 97.9 F Pulse Rate 66 53 L 59 L Respiratory Rate 16 18 18 Blood Pressure 126/62 123/77 126/78 Pulse Oximetry 97 98 100 Intake & Output 10/08/18 10/09/18 10/09/18 18:59 06:59 18:59 Intake Total 940 / 940 850 / 850 50 / 50 Output Total 1999 1200 Balance -1060 / -1060 -350 / -350 50 / 50 Weight 77.7 kg Intake: IV 100 / 100 50 / 50 50 / 50 Ancef 2 GM Premix Inj 2 gm In 100 / 100 50 / 50 50 / 50 50 ml @ 150 mls/hr IV.SIG Q8H [facility] Rx#:[id number] Oral 840 / 840 800 / 800 Output: Urine 1999 1200 / 1200 Other: Mode Setting Right Knee Continuous Date of Last Bowel Movement 10/08/18 # Bowel Movements 2 <Rina Lam R - 10/09/18 12:39> Vital Signs 10/08/18 12:00 10/08/18 14:45 10/08/18 16:00 Temperature 98.8 F 97.9 F Pulse Rate 68 60 Respiratory Rate 17 20 17 Blood Pressure 126/75 132/73 Pulse Oximetry 97 98 10/08/18 20:00 10/09/18 00:00 10/09/18 04:00 Temperature 98 F 97.4 F L 97.2 F L Pulse Rate 67 66 53 L Respiratory Rate 18 16 18 Blood Pressure 124/64 126/62 123/77 Pulse Oximetry 99 97 98 10/09/18 08:00 Temperature 97.9 F Pulse Rate 59 L Respiratory Rate 18 Blood Pressure 126/78 Pulse Oximetry 100 Intake & Output 10/08/18 10/09/18 10/09/18 18:59 06:59 18:59 Intake Total 940 / 940 850 / 850 50 / 50 Output Total 1999 1200 Balance -1060 / -1060 -350 / -350 50 / 50 Weight 77.7 kg Intake: IV 100 / 100 50 / 50 50 / 50 Ancef 2 GM Premix Inj 2 gm In 100 / 100 50 / 50 50 / 50 50 ml @ 150 mls/hr IV.SIG Q8H [facility] Rx#:[id number] Oral 840 / 840 800 / 800 Output: Urine 2000 / 2000 1200 / 1200 Other: Mode Setting Right Knee Continuous Date of Last Bowel Movement 10/08/18 # Bowel Movements 2 <Partha Tate - 10/09/18 11:30> Narrative: GENERAL: Well-nourished well-developed, not in acute distress SKIN: Cool and dry, no generalized rash HEAD: Atraumatic. Normocephalic. No temporal or scalp tenderness. EYES: Scleral icterus. No injection or drainage. No petechia ENT: Nothing abnormal detected NECK: Trachea midline. Supple, nontender, no meningeal signs. CARDIOVASCULAR: Regular rate and rhythm, normal S1-S2, no murmurs/gallops/rubs RESPIRATORY: Clear to auscultation bilaterally. GASTROINTESTINAL: Abdomen soft nontender. MUSCULOSKELETAL: right knee wound vac in place draining serosanguinous fluid. Mild tenderness to palpation. +2 peripheral pulses bilaterally. Normal range of motion. NEUROLOGICAL: Alert oriented 3. Nonfocal. <Partha Tate - 10/09/18 11:30> Assessment and Plan - Assessment (1) Cellulitis of right knee Code(s): L03.115 - Cellulitis of right lower limb Status: Inactive (2) Hepatitis C Code(s): B19.20 - Unspecified viral hepatitis C without hepatic coma Status: Acute (3) Nutrition, metabolism, and development symptoms Code(s): R63.8 - Other symptoms and signs concerning food and fluid intake Status: Acute <Rina Lam - 10/09/18 12:39> (1) Cellulitis of right knee Code(s): L03.115 - Cellulitis of right lower limb Status: Inactive Plan: Patient is a 42-year-old male with past medical history of IV drug use who presented to the ED with worsening right knee pain and swelling. Patient failed outpatient treatment with Dalvance. Admitted for Right knee cellulitis with failed outpatient treatment. Prior ED encounter on 09/30 x-ray of the right knee showed prepatellar swelling , no acute bony abnormalities. On admission right knee erythema and swelling noted on exam with limited flexion due to pain. Erythema measured to be 10 x 8 cm. MRI: abscess vs bursitis; given edema cannot rule out osteomyelitis Tylenol and Toradol for pain with morphine for breakthrough (decreased from 4mg to 2 mg) -Vital signs stable and pain well-controlled. Infectious disease consulted, appreciate recommendations -Zyvox IV switched to ancef until Dalvance elimination life reached -Blood cultures are no growth to date -Wound cx staph aureus -ID consult: GC and chlamydia neg, HIV neg, hep C labs RNA pending -2D echo showing normal LV size, LV systolic function normal with eEF 55-60%, no vegetation noted -Ortho consult: Status post irrigation and debridement, incision and drainage, and application of wound VAC on 10/06; cultures: Growing staph aureus; wound vac change M/W/F (2) Hepatitis C Code(s): B19.20 - Unspecified viral hepatitis C without hepatic coma Status: Acute Plan: Diagnosed with Hep C during admission -RNA PCR pending -HIV and hep B non-reactive -appreciate ID recommendations (3) Nutrition, metabolism, and development symptoms Code(s): R63.8 - Other symptoms and signs concerning food and fluid intake Status: Acute Plan: Fluids: not indicated at this time Electrolytes: Replete as needed Diet: Regular DVT prophylaxis: Lovenox SQ <Partha Tate - 10/09/18 11:04> - Attending Attestation This patient was seen and examined. The assessment and plan was discussed with the resident physician and I am in agreement with continued medical care as documented in this encounter. RINA LAM MD <Rina Lam - 10/09/18 12:39>
[2018-10-09] MEDS ORDERED: Morphine Sulfate Inj 2 MG/ML Vial IV.PUSH PRN (13:00)
[2018-10-09] MEDS: Enoxaparin Inj 40 MG/0.4 ML Syringe SQ SCH (15:28)
[2018-10-10] MEDS: Morphine Sulfate Inj 2 MG/ML Vial IV.PUSH PRN ×8 (03:08→23:30)
[2018-10-10 07:17] LABS: Baso % (Auto) 0.8 % (0.0-2.0); Eos # (Auto) 0.2 th/mm3 (0.0-0.4); Eos % (Auto) 3.3 % (0.0-4.0); Hematocrit 34.8 % (39.0-51.0); Hemoglobin 11.6 gm/dL (13.0-17.0); Lymph # (Auto) 1.5 th/mm3 (1.0-4.8); Lymph % (Auto) 26.7 % (9.0-44.0); Mean Corpuscular HGB Conc 33.4 % (32.0-36.0); Mean Corpuscular Hemoglobin 30.4 pg (27.0-34.0); Mean Corpuscular Volume 90.9 fL (80.0-100.0); Mean Platelet Volume 6.4 fL (7.0-11.0); Mono # (Auto) 0.4 th/mm3 (0.0-0.9); Neut # (Auto) 3.4 th/mm3 (1.8-7.7); Neut % (Auto) 62.2 % (16.0-70.0); Platelet Count 412 th/mm3 (150-450); Red Blood Count 3.83 mil/mm3 (4.50-5.90); Red Cell Distribution Width 13.3 % (11.6-17.2); White Blood Count 5.5 th/mm3 (4.0-11.0)
[2018-10-10 08:01] LABS: Anion Gap 5 meq/L (5-15); Blood Urea Nitrogen 10 mg/dL (7-18); Calcium 8.7 mg/dL (8.5-10.1); Carbon Dioxide 30.7 meq/L (21.0-32.0); Chloride 105 meq/L (98-107); Glomerular Filtration Rate Greater Than 89 mL/min (>89); Glucose,Random 83 mg/dL (74-106); Potassium 4.6 meq/L (3.5-5.1); Sodium 141 meq/L (136-145)
[2018-10-10] MEDS: ceFAZolin 2 GM Premix Inj 2 GM/50 ML PIGGYBACK IV.SIG SCH ×3 (09:00→23:31)
[2018-10-10] MEDS: Senna/Docusate Sodium 8.6/50 MG Tablet PO SCH ×2 (09:00→20:14)
[2018-10-10] MEDS: Sodium Chloride 0.9% 2 ML Flush BID IV.FLUSH SCH ×2 (10:17→20:13)
--- NOTE | 2018-10-10 10:25 | P.PNFP ---
Subjective Interval history: Patient seen and examined at bedside this morning. No acute events overnight. Patient will be having wound VAC change today. Denies any chest pain, shortness of breath, palpitations, dizziness, fever, chills, nausea , vomiting, or abdominal pain. <Christopher Madrigal - 10/10/18 10:25> Results - Labs Result diagrams: 10/13/18 04:22 10/13/18 04:22 <Rina Lam - 10/13/18 13:41> Abnormal lab results 10/13/18 Range/Units 04:22 RBC 3.82 L (4.50-5.90) mil/mm3 Hgb 11.7 L (13.0-17.0) gm/dL Hct 35.0 L (39.0-51.0) % Short CBC 10/13/18 Range/Units 04:22 WBC 7.2 (4.0-11.0) th/mm3 Hgb 11.7 L (13.0-17.0) gm/dL Hct 35.0 L (39.0-51.0) % Plt Count 326 (150-450) th/mm3 [facility] 10/13/18 04:22 Sodium 139 Potassium 4.2 Chloride 102 Carbon Dioxide 27.3 BUN 15 Creatinine 0.83 Calcium 8.5 <Rina Lam - 10/13/18 13:41> Abnormal lab results 10/10/18 Range/Units 06:53 RBC 3.83 L (4.50-5.90) mil/mm3 Hgb 11.6 L (13.0-17.0) gm/dL Hct 34.8 L (39.0-51.0) % MPV 6.4 L (7.0-11.0) fL Short CBC 10/10/18 Range/Units 06:53 WBC 5.5 (4.0-11.0) th/mm3 Hgb 11.6 L (13.0-17.0) gm/dL Hct 34.8 L (39.0-51.0) % Plt Count 412 (150-450) th/mm3 [facility] 10/10/18 06:53 Sodium 141 Potassium 4.6 Chloride 105 Carbon Dioxide 30.7 BUN 10 Creatinine 0.68 Calcium 8.7 <Christopher Madrigal - 11/21/18 10:25> Physical Exam Vital signs: Vital Signs 10/12/18 16:00 10/12/18 20:00 10/13/18 00:00 Temperature 97.8 F 98 F 97.6 F Pulse Rate 84 71 63 Respiratory Rate 20 16 16 Blood Pressure 120/66 138/80 117/64 Pulse Oximetry 99 97 10/13/18 04:00 Temperature 97.6 F Pulse Rate 63 Respiratory Rate 20 Blood Pressure 97/56 L Pulse Oximetry 98 Intake & Output 10/12/18 10/13/18 10/13/18 18:59 06:59 18:59 Intake Total 1060 / 1060 934 / 934 50 / 50 Output Total 500 / 500 500 / 500 Balance 560 / 560 434 / 434 50 / 50 Weight 74.2 kg Intake: IV 100 / 100 50 / 50 50 / 50 Ancef 2 GM Premix Inj 2 gm In 100 / 100 50 / 50 50 / 50 50 ml @ 150 mls/hr IV.SIG Q8H [facility] Rx#:[id number] Oral 960 / 960 884 / 884 Output: Urine 500 / 500 500 / 500 Other: Mode Setting Right Knee Continuous Continuous Continuous Date of Last Bowel Movement 10/10/18 10/12/18 # Bowel Movements 1 <MarcosashleyRina R - 10/13/18 13:41> Vital Signs 10/09/18 12:00 10/09/18 16:00 10/09/18 20:00 Temperature 97.9 F 98.4 F 97.9 F Pulse Rate 64 54 L 69 Respiratory Rate 18 18 19 Blood Pressure 124/71 128/75 131/63 Pulse Oximetry 100 100 98 10/10/18 00:00 10/10/18 04:00 10/10/18 08:00 Temperature 97.8 F 97.8 F 98.6 F Pulse Rate 57 L 55 L 58 L Respiratory Rate 18 19 20 Blood Pressure 124/72 130/82 123/75 Pulse Oximetry 99 100 99 Intake & Output 10/09/18 10/10/18 10/10/18 18:59 06:59 18:59 Intake Total 3050 / 3050 1850 / 1850 Output Total 2550 / 2550 2400 / 2400 Balance 500 / 500 -550 / -550 Weight 78.4 kg Intake: IV 100 / 100 50 / 50 Ancef 2 GM Premix Inj 2 gm In 100 / 100 50 / 50 50 ml @ 150 mls/hr IV.SIG Q8H [facility] Rx#:[id number] Oral 2950 / 2950 1700 / 1700 Other 100 / 100 Output: Urine 2550 / 2550 2400 / 2400 Other: Mode Setting Right Knee Continuous Continuous Date of Last Bowel Movement 10/08/18 10/08/18 # Bowel Movements 1 <Christopher Madrigal D - 10/10/18 10:25> Narrative: GENERAL: Well-nourished well-developed, not in acute distress SKIN: Cool and dry, no generalized rash HEAD: Atraumatic. Normocephalic. No temporal or scalp tenderness. EYES: Scleral icterus. No injection or drainage. No petechia ENT: Nothing abnormal detected NECK: Trachea midline. Supple, nontender, no meningeal signs. CARDIOVASCULAR: Regular rate and rhythm, normal S1-S2, no murmurs/gallops/rubs RESPIRATORY: Clear to auscultation bilaterally. GASTROINTESTINAL: Abdomen soft nontender. MUSCULOSKELETAL: right knee wound vac in place draining serosanguinous fluid. Mild tenderness to palpation. +2 peripheral pulses bilaterally. Normal range of motion. NEUROLOGICAL: Alert oriented 3. Nonfocal. <Christopher Madrigal D - 10/10/18 10:25> Assessment and Plan - Assessment (1) Cellulitis of right knee Code(s): L03.115 - Cellulitis of right lower limb Status: Inactive (2) Hepatitis C Code(s): B19.20 - Unspecified viral hepatitis C without hepatic coma Status: Acute (3) Nutrition, metabolism, and development symptoms Code(s): R63.8 - Other symptoms and signs concerning food and fluid intake Status: Acute <Rina Lam R - 10/13/18 13:41> (1) Cellulitis of right knee Code(s): L03.115 - Cellulitis of right lower limb Status: Inactive Plan: Patient is a 42-year-old male with past medical history of IV drug use who presented to the ED with worsening right knee pain and swelling. Patient failed outpatient treatment with Dalvance. Admitted for Right knee cellulitis with failed outpatient treatment. Prior ED encounter on 09/30 x-ray of the right knee showed prepatellar swelling , no acute bony abnormalities. On admission right knee erythema and swelling noted on exam with limited flexion due to pain. Erythema measured to be 10 x 8 cm. MRI: abscess vs bursitis; given edema cannot rule out osteomyelitis Tylenol and Toradol for pain with morphine for breakthrough (decreased from 4mg to 2 mg) -Vital signs stable and pain well-controlled. Infectious disease consulted, appreciate recommendations -Zyvox IV switched to ancef until Dalvance elimination life reached -Blood cultures are no growth to date -Wound cx staph aureus -ID consult: GC and chlamydia neg, HIV neg, hep C labs RNA pending -2D echo showing normal LV size, LV systolic function normal with eEF 55-60%, no vegetation noted -Ortho consult: Status post irrigation and debridement, incision and drainage, and application of wound VAC on 10/06; cultures: Growing staph aureus; wound vac change M/W/F. Will give extra dose of morphine a few minutes prior to wound vac change as pt was complaining it was extremely painful. (2) Hepatitis C Code(s): B19.20 - Unspecified viral hepatitis C without hepatic coma Status: Acute Plan: Diagnosed with Hep C during admission -RNA PCR pending -HIV and hep B non-reactive -appreciate ID recommendations (3) Nutrition, metabolism, and development symptoms Code(s): R63.8 - Other symptoms and signs concerning food and fluid intake Status: Acute Plan: Fluids: not indicated at this time Electrolytes: Replete as needed Diet: Regular DVT prophylaxis: SCDs <Christopher Madrigal - 10/10/18 10:12> - Attending Attestation This patient was seen and examined. The assessment and plan was discussed with the resident physician and I am in agreement with continued medical care as documented in this encounter. RINA LAM MD <Rina Lam - 10/13/18 13:41>
--- NOTE | 2018-10-10 14:06 | P.PNOP ---
Subjective Interval history: painful, especially during vac changes Physical Exam Vital signs: Vital Signs 10/09/18 16:00 10/09/18 20:00 10/10/18 00:00 Temperature 98.4 F 97.9 F 97.8 F Pulse Rate 54 L 69 57 L Respiratory Rate 18 18 Blood Pressure 128/75 131/63 124/72 Pulse Oximetry 100 98 99 10/10/18 04:00 10/10/18 08:00 10/10/18 12:00 Temperature 97.8 F 98.6 F 98.1 F Pulse Rate 55 L 58 L 56 L Respiratory Rate 18 Blood Pressure 130/82 123/75 118/64 Pulse Oximetry 100 99 100 Intake & Output 10/09/18 10/10/18 10/10/18 18:59 06:59 18:59 Intake Total 3050 / 3050 1850 / 1850 50 / 50 Output Total 2550 / 2550 2400 / 2400 Balance 500 / 500 -550 / -550 50 / 50 Weight 78.4 kg Intake: IV 100 / 100 50 / 50 50 / 50 Ancef 2 GM Premix Inj 2 gm In 100 / 100 50 / 50 50 / 50 50 ml @ 150 mls/hr IV.SIG Q8H [facility] Rx#:[id number] Oral 2950 / 2950 1700 / 1700 Other 100 / 100 Output: Urine 2550 / 2550 2400 / 2400 Other: Mode Setting Right Knee Continuous Continuous Date of Last Bowel Movement 10/08/18 10/08/18 # Bowel Movements 1 Narrative: in bed, nad vac in place, bloody around sponge neg homans nvi Results - Labs CBC & Chem 7: 10/10/18 06:53 10/10/18 06:53 Laboratory Results - last 24 hr 10/10/18 10/10/18 06:53 06:53 WBC 5.5 RBC 3.83 L Hgb 11.6 L Hct 34.8 L MCV 90.9 MCH 30.4 MCHC 33.4 RDW 13.3 Plt Count 412 MPV 6.4 L Neut % (Auto) 62.2 Lymph % (Auto) 26.7 [place] % (Auto) 7.0 Eos % (Auto) 3.3 Baso % (Auto) 0.8 Neut # (Auto) 3.4 Lymph # (Auto) 1.5 [place] # (Auto) 0.4 Eos # (Auto) 0.2 Baso # (Auto) 0.0 WBC Differential . Differential Comment Auto diff final Sodium 141 Potassium 4.6 Chloride 105 Carbon Dioxide 30.7 Anion Gap 5 BUN 10 Creatinine 0.68 Estimated GFR Greater than 89 Random Glucose 83 Calcium 8.7 Microbiology 10/05/18 07:17 Blood - Peripheral Aerobic Blood Culture - Final No growth in 5 days 10/05/18 07:17 Blood - Peripheral Anaerobic Blood Culture - Final No growth in 5 days 10/05/18 07:13 Blood - Peripheral Aerobic Blood Culture - Final No growth in 5 days 10/05/18 07:13 Blood - Peripheral Anaerobic Blood Culture - Final No growth in 5 days Assessment and Plan - Ortho Post Op Day # 4 - Assessment and Plan s/p I&D R knee with spencer of wound vac POD#4 (09/05/18) wbat wound vac changes m/w/f abx per ID
[2018-10-10 23:52] LABS: Hepatitis C RNA (PCR) log IUs 6.27
[2018-10-11] MEDS: Morphine Sulfate Inj 2 MG/ML Vial IV.PUSH PRN ×6 (02:59→23:43)
[2018-10-11 05:15] LABS: Baso # (Auto) 0.1 th/mm3 (0.0-0.2); Baso % (Auto) 0.7 % (0.0-2.0); Eos # (Auto) 0.2 th/mm3 (0.0-0.4); Eos % (Auto) 3.2 % (0.0-4.0); Hematocrit 35.9 % (39.0-51.0); Hemoglobin 12.1 gm/dL (13.0-17.0); Lymph # (Auto) 1.9 th/mm3 (1.0-4.8); Lymph % (Auto) 25.1 % (9.0-44.0); Mean Corpuscular HGB Conc 33.8 % (32.0-36.0); Mean Corpuscular Hemoglobin 30.8 pg (27.0-34.0); Mean Platelet Volume 6.7 fL (7.0-11.0); Mono # (Auto) 0.7 th/mm3 (0.0-0.9); Mono % (Auto) 8.5 % (0.0-8.0); Neut # (Auto) 4.8 th/mm3 (1.8-7.7); Neut % (Auto) 62.5 % (16.0-70.0); Platelet Count 413 th/mm3 (150-450); Red Blood Count 3.94 mil/mm3 (4.50-5.90); Red Cell Distribution Width 13.5 % (11.6-17.2); White Blood Count 7.6 th/mm3 (4.0-11.0)
[2018-10-11 05:50] LABS: Anion Gap 3 meq/L (5-15); Blood Urea Nitrogen 13 mg/dL (7-18); Carbon Dioxide 34.7 meq/L (21.0-32.0); Chloride 102 meq/L (98-107); Glomerular Filtration Rate Greater Than 89 mL/min (>89); Glucose,Random 85 mg/dL (74-106); Potassium 4.9 meq/L (3.5-5.1); Sodium 140 meq/L (136-145)
[2018-10-11] MEDS: ceFAZolin 2 GM Premix Inj 2 GM/50 ML PIGGYBACK IV.SIG SCH ×3 (08:21→23:45)
[2018-10-11] MEDS: Sodium Chloride 0.9% 2 ML Flush BID IV.FLUSH SCH ×2 (08:21→20:09)
[2018-10-11] MEDS: Senna/Docusate Sodium 8.6/50 MG Tablet PO SCH ×2 (08:23→20:10)
--- NOTE | 2018-10-11 08:48 | P.PNOP ---
Subjective Interval history: No complaints Physical Exam Vital signs: Vital Signs 10/10/18 12:00 10/10/18 16:00 10/10/18 20:00 Temperature 98.1 F 98.0 F 98.2 F Pulse Rate 63 70 54 L Respiratory Rate 18 18 20 Blood Pressure 118/64 128/68 121/66 Pulse Oximetry 100 98 97 10/11/18 00:00 10/11/18 04:00 Temperature 97.7 F 97.2 F L Pulse Rate 54 L 89 Respiratory Rate 20 20 Blood Pressure 116/73 121/74 Pulse Oximetry 96 99 Intake & Output 10/10/18 10/11/18 10/11/18 18:59 06:59 18:59 Intake Total 1600 / 1600 1470 / 1470 50 / 50 Output Total 2650 / 2650 1999 Balance -1050 / -1050 -530 / -530 50 / 50 Weight 75.2 kg Intake: IV 100 / 100 50 / 50 50 / 50 Ancef 2 GM Premix Inj 2 gm In 100 / 100 50 / 50 50 / 50 50 ml @ 150 mls/hr IV.SIG Q8H [facility] Rx#:[id number] Oral 1500 / 1500 1420 / 1420 Output: Urine 2650 / 2650 1999 Other: Mode Setting Right Knee Continuous Continuous # Voids 2 Date of Last Bowel Movement 10/08/18 10/10/18 Narrative: Right leg: Wound VAC in place. No swelling. No significant redness Results - Labs CBC & Chem 7: 10/11/18 04:46 10/11/18 04:06 Laboratory Results - last 24 hr 10/06/18 10/11/18 10/11/18 11:38 04:06 04:46 WBC 7.6 RBC 3.94 L Hgb 12.1 L Hct 35.9 L MCV 91.0 MCH 30.8 MCHC 33.8 RDW 13.5 Plt Count 413 MPV 6.7 L Neut % (Auto) 62.5 Lymph % (Auto) 25.1 [place] % (Auto) 8.5 H Eos % (Auto) 3.2 Baso % (Auto) 0.7 Neut # (Auto) 4.8 Lymph # (Auto) 1.9 [place] # (Auto) 0.7 Eos # (Auto) 0.2 Baso # (Auto) 0.1 WBC Differential . Differential Comment Auto diff final Sodium 140 Potassium 4.9 Chloride 102 Carbon Dioxide 34.7 H Anion Gap 3 L BUN 13 Creatinine 0.87 Estimated GFR Greater than 89 Random Glucose 85 Calcium 9.0 HCV RNA (PCR) IUs/ml [id number] HCV RNA PCR log IUs/ml 6.27 H Microbiology 10/05/18 07:17 Blood - Peripheral Aerobic Blood Culture - Final No growth in 5 days 10/05/18 07:17 Blood - Peripheral Anaerobic Blood Culture - Final No growth in 5 days 10/05/18 07:13 Blood - Peripheral Aerobic Blood Culture - Final No growth in 5 days 10/05/18 07:13 Blood - Peripheral Anaerobic Blood Culture - Final No growth in 5 days Assessment and Plan - Assessment and Plan Abscess/infection right knee. SURGERY:I&D R knee with spencer of wound vac POD#5 (10/06/18) wbat wound vac changes m/w/f abx per ID. Dr. Gegier will reevaluate next week
--- NOTE | 2018-10-11 12:38 | P.PNFP ---
Subjective Interval history: Has done well overnight. No fever or chills. Still noting moderate amount of pain associated with knee movement. No SOB. No chest pain. No GI symptoms. Results - Labs Result diagrams: 10/11/18 04:46 10/11/18 04:06 Abnormal lab results 10/06/18 10/11/18 10/11/18 Range/Units 11:38 04:06 04:46 RBC 3.94 L (4.50-5.90) mil/mm3 Hgb 12.1 L (13.0-17.0) gm/dL Hct 35.9 L (39.0-51.0) % MPV 6.7 L (7.0-11.0) fL [place] % (Auto) 8.5 H (0.0-8.0) % Carbon Dioxide 34.7 H (21.0-32.0) meq/L Anion Gap 3 L (5-15) meq/L HCV RNA (PCR) IUs/ml [id number] H IU/mL HCV RNA PCR log IUs/ml 6.27 H LogIU/mL Short CBC 10/11/18 Range/Units 04:46 WBC 7.6 (4.0-11.0) th/mm3 Hgb 12.1 L (13.0-17.0) gm/dL Hct 35.9 L (39.0-51.0) % Plt Count 413 (150-450) th/mm3 [facility] 10/11/18 04:06 Sodium 140 Potassium 4.9 Chloride 102 Carbon Dioxide 34.7 H BUN 13 Creatinine 0.87 Calcium 9.0 Physical Exam Vital signs: Vital Signs 10/10/18 16:00 10/10/18 20:00 10/11/18 00:00 Temperature 98.0 F 98.2 F 97.7 F Pulse Rate 70 54 L 54 L Respiratory Rate 18 20 20 Blood Pressure 128/68 121/66 116/73 Pulse Oximetry 98 97 96 10/11/18 04:00 10/11/18 08:00 Temperature 97.2 F L Pulse Rate 89 72 Respiratory Rate 20 Blood Pressure 121/74 Pulse Oximetry 99 Intake & Output 10/10/18 10/11/18 10/11/18 18:59 06:59 18:59 Intake Total 1600 / 1600 1470 / 1470 50 / 50 Output Total 2650 / 2650 1999 Balance -1050 / -1050 -530 / -530 50 / 50 Weight 75.2 kg Intake: IV 100 / 100 50 / 50 50 / 50 Ancef 2 GM Premix Inj 2 gm In 100 / 100 50 / 50 50 / 50 50 ml @ 150 mls/hr IV.SIG Q8H [facility] Rx#:[id number] Oral 1500 / 1500 1420 / 1420 Output: Urine 2650 / 2650 1999 Other: Mode Setting Right Knee Continuous Continuous Continuous # Voids 2 Date of Last Bowel Movement 10/08/18 10/10/18 Narrative: ;GEN: Awake and alert, i NAD. LUNGS: Clear A-P CV: RRR without murmur. No edema. ABD/GI: Soft, non-tender. NEURO: no focal deficts. MENTAL STATUS: oriented x 3. Communicates normally Assessment and Plan - Assessment (1) Cellulitis of right knee Code(s): L03.115 - Cellulitis of right lower limb Status: Inactive Plan: Patient is a 42-year-old male with past medical history of IV drug use who presented to the ED with worsening right knee pain and swelling. Patient failed outpatient treatment with Dalvance. Admitted for Right knee cellulitis with failed outpatient treatment. Prior ED encounter on 09/30 x-ray of the right knee showed prepatellar swelling , no acute bony abnormalities. On admission right knee erythema and swelling noted on exam with limited flexion due to pain. Erythema measured to be 10 x 8 cm. MRI: abscess vs bursitis; given edema cannot rule out osteomyelitis Tylenol and Toradol for pain with morphine for breakthrough (decreased from 4mg to 2 mg) -Vital signs stable and pain well-controlled. Infectious disease consulted, appreciate recommendations -Zyvox IV switched to ancef until Dalvance elimination life reached -Blood cultures are no growth to date -Wound cx staph aureus -ID consult: GC and chlamydia neg, HIV neg, hep C labs RNA pending -2D echo showing normal LV size, LV systolic function normal with eEF 55-60%, no vegetation noted -Ortho consult: Status post irrigation and debridement, incision and drainage, and application of wound VAC on 10/06; cultures: Growing staph aureus; wound vac change M/W/F. Will give extra dose of morphine a few minutes prior to wound vac change as pt was complaining it was extremely painful. 10/11/18 Patient continues to do well under treatment of a madie-patellar infection from MSSA on antibiotic and local therapy. Moderate pain still with movement of involved joint. Will start ibuprofen TID with meals to decreased inflammation. (2) Hepatitis C Code(s): B19.20 - Unspecified viral hepatitis C without hepatic coma Status: Acute Plan: Diagnosed with Hep C during admission -RNA PCR pending -HIV and hep B non-reactive -appreciate ID recommendations (3) Nutrition, metabolism, and development symptoms Code(s): R63.8 - Other symptoms and signs concerning food and fluid intake Status: Acute Plan: Fluids: not indicated at this time Electrolytes: Replete as needed Diet: Regular DVT prophylaxis: SCDs
[2018-10-11] MEDS: Ibuprofen 600 MG Tablet PO SCH ×2 (13:09→23:00)
--- NOTE | 2018-10-11 14:39 | P.PNID ---
Subjective Remarks: Mr. Ernst is a 42-year-old male with past medical history significant for IV drug abuse with prior history of multiple skin abscesses. Patient denies any prior history of endocarditis or epidural abscesses. Patient presented to the emergency department on September 30, 2018 for right knee pain and swelling. At that time he was thought to have cellulitis and was given 1 dose of dalbavancin which is an extended release Lipoglycoprotein like vancomycin IV and asked to return for reassessment in 2 days. Patient returned on 10/04/2018 and was admitted due to worsening pain and swelling. Knee pain worst with weight bearing, however still able to ambulate. He denies fever, chills , n/v, dizziness, back pain, cp or sob. Patient also noticed pus-like drainage from knee last night but denies increase in erythema. Of note patient uses IV heroin and meth, last used 3 days ago. He reports he only injects on both arms. Denies any pain elsewhere in his body. He denies any injection at knee likely hematogenous dissemination will need endovascular workup. ID consulted for evaluation and Mment of patellar abscess and possible right knee septic arthritis. Notes reviewed Temps ok C/O pain Had surgery over weekend. Post note reviewed - septic prepatellar bursitis; has wound vac in place C/S 10/05 MSSA BC negative ECHO negative Antibiotics: Ancef IV Lines: PIV Past Medical History: Hep C Back surgery Allergies/Adverse Reactions: Allergies No Known Allergies Allergy (Unverified 10/04/18 10:47) Objective Vital Signs 10/10/18 16:00 10/10/18 20:00 10/11/18 00:00 Temperature 98.0 F 98.2 F 97.7 F Pulse Rate 70 54 L 54 L Respiratory Rate 18 20 20 Blood Pressure 128/68 121/66 116/73 Pulse Oximetry 98 97 96 10/11/18 04:00 10/11/18 08:00 10/11/18 12:00 Temperature 97.2 F L Pulse Rate 89 72 60 Respiratory Rate 20 Blood Pressure 121/74 Pulse Oximetry 99 Intake & Output 10/10/18 10/11/18 10/11/18 18:59 06:59 18:59 Intake Total 1600 / 1600 1470 / 1470 50 / 50 Output Total 2650 / 2650 1999 / 1999 Balance -1050 / -1050 -530 / -530 50 / 50 Weight 75.2 kg Intake: IV 100 / 100 50 / 50 50 / 50 Ancef 2 GM Premix Inj 2 gm In 100 / 100 50 / 50 50 / 50 50 ml @ 150 mls/hr IV.SIG Q8H [facility] Rx#:[id number] Oral 1500 / 1500 1420 / 1420 Output: Urine 2650 / 2650 1999 / 1999 Other: Mode Setting Right Knee Continuous Continuous Continuous # Voids 2 Date of Last Bowel Movement 10/08/18 10/10/18 10/05/18 07:17 Blood - Peripheral Aerobic Blood Culture - Final No growth in 5 days 10/05/18 07:17 Blood - Peripheral Anaerobic Blood Culture - Final No growth in 5 days 10/05/18 07:13 Blood - Peripheral Aerobic Blood Culture - Final No growth in 5 days 10/05/18 07:13 Blood - Peripheral Anaerobic Blood Culture - Final No growth in 5 days 10/06/18 08:29 Wound - Knee Acid Fast Bacilli Smear - Final No acid fast bacilli seen 10/06/18 08:29 Wound - Knee Mycobacterial Culture - Pending 10/06/18 08:29 Wound - Knee Fungal Smear - Final No fungal elements seen 10/06/18 08:29 Wound - Knee Fungal Culture - Pending 10/06/18 08:29 Wound - Knee Gram Stain - Final 10/06/18 08:29 Wound - Knee Wound Culture - Final Staphylococcus aureus Lab - Hematology Results 10/10/18 10/11/18 06:53 04:46 WBC 5.5 7.6 RBC 3.83 L 3.94 L Hgb 11.6 L 12.1 L Hct 34.8 L 35.9 L MCV 90.9 91.0 MCH 30.4 30.8 MCHC 33.4 33.8 RDW 13.3 13.5 Plt Count 412 413 MPV 6.4 L 6.7 L Neut % (Auto) 62.2 62.5 Lymph % (Auto) 26.7 25.1 [place] % (Auto) 7.0 8.5 H Eos % (Auto) 3.3 3.2 Baso % (Auto) 0.8 0.7 Neut # (Auto) 3.4 4.8 Lymph # (Auto) 1.5 1.9 [place] # (Auto) 0.4 0.7 Eos # (Auto) 0.2 0.2 Baso # (Auto) 0.0 0.1 WBC Differential . . Differential Comment Auto diff final Auto diff final Lab - Chemistry Results 10/10/18 10/11/18 06:53 04:06 Sodium 141 140 Potassium 4.6 4.9 Chloride 105 102 Carbon Dioxide 30.7 34.7 H Anion Gap 5 3 L BUN 10 13 Creatinine 0.68 0.87 Estimated GFR Greater than 89 Greater than 89 Random Glucose 83 85 Calcium 8.7 9.0 Imaging: ITS Impressions Knee MRI 10/04/18 00:00 CONCLUSION: 1. Probable prepatellar abscess or bursitis with complex rim-enhancing fluid collection present. There is surrounding cellulitis. There is some mild marrow edema in the medial femoral condyle and patella with questionable enhancement postcontrast. Cannot exclude early osteomyelitis. Small knee joint effusion. Ligaments and menisci intact. Physical Exam: GENERAL: awake and alert, not in respiratory distress SKIN: Cool and dry, no generalized rash HEAD: Atraumatic. Normocephalic. No temporal or scalp tenderness. EYES: Pupils equal round and reactive. Scleral icterus. No injection or drainage. No petechia ENT:No nasal drainage, moist oral mucosa NECK: Trachea midline. Supple, nontender, no meningeal signs. CARDIOVASCULAR: HS audible. RESPIRATORY: Clear to auscultation bilaterally. GASTROINTESTINAL: Abdomen soft nontender. MUSCULOSKELETAL: Right knee with wound vac in place, has periwound erythema and induration which looks better. No calf tenderness NEUROLOGICAL: Alert oriented 3. Nonfocal. Psych cooperative IV line sites ok. Assessment and Plan - Plan Right knee patellar abscess/bursitis MSSA infection Cellulitis R knee IVDA Hep C positive Shares needles consented to HIV Hepatitis testing. h/o skin abscesses in past. Recs: Patient has received Dalbavancin please dont give any more Vanco IV as it can be nephrotoxic. Continue IV Ancef while in hospital. Patient reports being homeless and lost his RV. Cannot send home with Wound vac if no electricity, dw CM. Follow C/S Monitor progress. No PICC till cleared by ID
[2018-10-12] MEDS: Ibuprofen 600 MG Tablet PO SCH ×3 (05:39→21:18)
[2018-10-12] MEDS: Morphine Sulfate Inj 2 MG/ML Vial IV.PUSH PRN ×5 (05:39→21:19)
[2018-10-12] MEDS: Sodium Chloride 0.9% 2 ML Flush BID IV.FLUSH SCH ×2 (08:19→21:20)
[2018-10-12] MEDS: ceFAZolin 2 GM Premix Inj 2 GM/50 ML PIGGYBACK IV.SIG SCH ×2 (08:19→16:11)
[2018-10-12] MEDS: Senna/Docusate Sodium 8.6/50 MG Tablet PO SCH ×2 (08:19→21:20)
[2018-10-12 08:54] LABS: Anion Gap 10 meq/L (5-15); Blood Urea Nitrogen 14 mg/dL (7-18); Calcium 8.8 mg/dL (8.5-10.1); Carbon Dioxide 28.7 meq/L (21.0-32.0); Chloride 99 meq/L (98-107); Glomerular Filtration Rate Greater Than 89 mL/min (>89); Glucose,Random 75 mg/dL (74-106); Potassium 4.4 meq/L (3.5-5.1); Sodium 138 meq/L (136-145)
--- NOTE | 2018-10-12 09:23 | P.PNFP ---
Subjective Interval history: Patient states his pain is much improved today. Was able to sleep comfortably for 4 hours overnight. States he no longer has decreased sensation in toes. Denies any fever, SOB, or CP. Given homeless situation, is unable to provide electricity for wound vac. <Aliya Frazier C - 10/12/18 09:23> Results - Labs Result diagrams: 10/13/18 04:22 10/13/18 04:22 <Rina Lam - 10/13/18 13:49> Abnormal lab results 10/13/18 Range/Units 04:22 RBC 3.82 L (4.50-5.90) mil/mm3 Hgb 11.7 L (13.0-17.0) gm/dL Hct 35.0 L (39.0-51.0) % Short CBC 10/13/18 Range/Units 04:22 WBC 7.2 (4.0-11.0) th/mm3 Hgb 11.7 L (13.0-17.0) gm/dL Hct 35.0 L (39.0-51.0) % Plt Count 326 (150-450) th/mm3 [facility] 10/13/18 04:22 Sodium 139 Potassium 4.2 Chloride 102 Carbon Dioxide 27.3 BUN 15 Creatinine 0.83 Calcium 8.5 <Rina Lam - 10/13/18 13:49> [facility] 10/12/18 06:55 Sodium 138 Potassium 4.4 Chloride 99 Carbon Dioxide 28.7 BUN 14 Creatinine 0.82 Calcium 8.8 <Aliya Frazier - 10/12/18 09:23> Physical Exam Vital signs: Vital Signs 10/12/18 16:00 10/12/18 20:00 10/13/18 00:00 Temperature 97.8 F 98 F 97.6 F Pulse Rate 84 71 63 Respiratory Rate 20 16 16 Blood Pressure 120/66 138/80 117/64 Pulse Oximetry 99 97 10/13/18 04:00 Temperature 97.6 F Pulse Rate 63 Respiratory Rate 20 Blood Pressure 97/56 L Pulse Oximetry 98 Intake & Output 10/12/18 10/13/18 10/13/18 18:59 06:59 18:59 Intake Total 1060 / 1060 934 / 934 50 / 50 Output Total 500 / 500 500 / 500 Balance 560 / 560 434 / 434 50 / 50 Weight 74.2 kg Intake: IV 100 / 100 50 / 50 50 / 50 Ancef 2 GM Premix Inj 2 gm In 100 / 100 50 / 50 50 / 50 50 ml @ 150 mls/hr IV.SIG Q8H [facility] Rx#:[id number] Oral 960 / 960 884 / 884 Output: Urine 500 / 500 500 / 500 Other: Mode Setting Right Knee Continuous Continuous Continuous Date of Last Bowel Movement 10/10/18 10/12/18 # Bowel Movements 1 <Rina Lam R - 10/13/18 13:49> Vital Signs 10/11/18 12:00 10/11/18 16:00 10/11/18 20:00 Temperature 97.5 F L 97.7 F 98.0 F Pulse Rate 63 85 82 Respiratory Rate 18 18 20 Blood Pressure 136/90 118/82 116/84 Pulse Oximetry 100 99 99 10/12/18 00:00 10/12/18 04:00 Temperature 97.9 F 97.4 F L Pulse Rate 85 61 Respiratory Rate 20 20 Blood Pressure 126/98 H 137/85 Pulse Oximetry 100 100 Intake & Output 10/11/18 10/12/18 10/12/18 18:59 06:59 18:59 Intake Total 2232 / 2232 1530 / 1530 50 / 50 Output Total 1500 / 1500 2400 / 2400 Balance 732 / 732 -870 / -870 50 / 50 Intake: IV 100 / 100 50 / 50 50 / 50 Ancef 2 GM Premix Inj 2 gm In 100 / 100 50 / 50 50 / 50 50 ml @ 150 mls/hr IV.SIG Q8H [facility] Rx#:[id number] Oral 2132 / 2132 1480 / 1480 Output: Urine 1500 / 1500 2400 / 2400 Other: Mode Setting Right Knee Continuous Continuous Date of Last Bowel Movement 10/10/18 # Bowel Movements 1 <Aliya Frazier C - 10/12/18 09:23> Narrative: GENERAL: Well-nourished well-developed, not in acute distress SKIN: Cool and dry, no generalized rash HEAD: Atraumatic. Normocephalic. No temporal or scalp tenderness. EYES: Scleral icterus. No injection or drainage. No petechia ENT: Nothing abnormal detected NECK: Trachea midline. Supple, nontender, no meningeal signs. CARDIOVASCULAR: Regular rate and rhythm, normal S1-S2, no murmurs/gallops/rubs RESPIRATORY: Clear to auscultation bilaterally. GASTROINTESTINAL: Abdomen soft nontender. MUSCULOSKELETAL: right knee wound vac in place draining serosanguinous fluid. Mild tenderness to palpation. +2 peripheral pulses bilaterally. Normal range of motion. Sensation intact NEUROLOGICAL: Alert oriented 3. Nonfocal. <Aliya Frazier C - 10/12/18 09:23> Assessment and Plan - Assessment (1) Cellulitis of right knee Code(s): L03.115 - Cellulitis of right lower limb Status: Inactive (2) Hepatitis C Code(s): B19.20 - Unspecified viral hepatitis C without hepatic coma Status: Acute (3) Nutrition, metabolism, and development symptoms Code(s): R63.8 - Other symptoms and signs concerning food and fluid intake Status: Acute <Rina Lam R - 10/13/18 13:49> (1) Cellulitis of right knee Code(s): L03.115 - Cellulitis of right lower limb Status: Inactive Plan: Patient is a 42-year-old male with past medical history of IV drug use who presented to the ED with worsening right knee pain and swelling. Patient failed outpatient treatment with Dalvance. Admitted for Right knee cellulitis with failed outpatient treatment. Prior ED encounter on 09/30 x-ray of the right knee showed prepatellar swelling , no acute bony abnormalities. On admission right knee erythema and swelling noted on exam with limited flexion due to pain. Erythema measured to be 10 x 8 cm. MRI: abscess vs bursitis; given edema cannot rule out osteomyelitis Tylenol and Toradol for pain with morphine for breakthrough (decreased from 4mg to 2 mg) -Vital signs stable and pain well-controlled. Infectious disease consulted, appreciate recommendations -Zyvox IV switched to ancef until Dalvance elimination life reached -Blood cultures are no growth to date -Wound cx staph aureus -ID consult: GC and chlamydia neg, HIV neg, hep C labs RNA pending -2D echo showing normal LV size, LV systolic function normal with eEF 55-60%, no vegetation noted -Ortho consult: Status post irrigation and debridement, incision and drainage, and application of wound VAC on 10/06; cultures: Growing staph aureus; wound vac change M/W/F. Will give extra dose of morphine a few minutes prior to wound vac change as pt was complaining it was extremely painful. 10/11/18 Patient continues to do well under treatment of a madie-patellar infection from MSSA on antibiotic and local therapy. Moderate pain still with movement of involved joint. Will start ibuprofen TID with meals to decreased inflammation. 10/12 ID recommends continued Ancef until Discharge plans are finalized. Patient has no electricity source for wound vac. Appreciate Ortho recommendations on need for wound vac or alternatives and discharge planning. (2) Hepatitis C Code(s): B19.20 - Unspecified viral hepatitis C without hepatic coma Status: Acute Plan: Diagnosed with Hep C during admission -RNA PCR pending -HIV and hep B non-reactive -appreciate ID recommendations (3) Nutrition, metabolism, and development symptoms Code(s): R63.8 - Other symptoms and signs concerning food and fluid intake Status: Acute Plan: Fluids: not indicated at this time Electrolytes: Replete as needed Diet: Regular DVT prophylaxis: SCDs <Aliya Frazier - 10/12/18 09:18> - Attending Attestation This patient was seen and examined. The assessment and plan was discussed with the resident physician and I am in agreement with continued medical care as documented in this encounter. RINA LAM MD <Rina Lam - 10/13/18 13:49>
[2018-10-13] MEDS: ceFAZolin 2 GM Premix Inj 2 GM/50 ML PIGGYBACK IV.SIG SCH ×4 (00:59→23:23)
[2018-10-13] MEDS: Morphine Sulfate Inj 2 MG/ML Vial IV.PUSH PRN ×5 (03:54→21:07)
[2018-10-13] MEDS: Ibuprofen 600 MG Tablet PO SCH ×4 (06:10→23:21)
[2018-10-13 06:19] LABS: Baso % (Auto) 0.5 % (0.0-2.0); Eos # (Auto) 0.2 th/mm3 (0.0-0.4); Eos % (Auto) 3.4 % (0.0-4.0); Hemoglobin 11.7 gm/dL (13.0-17.0); Lymph # (Auto) 1.6 th/mm3 (1.0-4.8); Lymph % (Auto) 22.1 % (9.0-44.0); Mean Corpuscular HGB Conc 33.4 % (32.0-36.0); Mean Corpuscular Hemoglobin 30.6 pg (27.0-34.0); Mean Corpuscular Volume 91.6 fL (80.0-100.0); Mono # (Auto) 0.4 th/mm3 (0.0-0.9); Mono % (Auto) 5.8 % (0.0-8.0); Neut # (Auto) 4.9 th/mm3 (1.8-7.7); Neut % (Auto) 68.2 % (16.0-70.0); Platelet Count 326 th/mm3 (150-450); Red Blood Count 3.82 mil/mm3 (4.50-5.90); Red Cell Distribution Width 13.7 % (11.6-17.2); White Blood Count 7.2 th/mm3 (4.0-11.0)
[2018-10-13 06:39] LABS: Anion Gap 10 meq/L (5-15); Blood Urea Nitrogen 15 mg/dL (7-18); Calcium 8.5 mg/dL (8.5-10.1); Carbon Dioxide 27.3 meq/L (21.0-32.0); Chloride 102 meq/L (98-107); Glomerular Filtration Rate Greater Than 89 mL/min (>89); Glucose,Random 98 mg/dL (74-106); Potassium 4.2 meq/L (3.5-5.1); Sodium 139 meq/L (136-145)
[2018-10-13] MEDS: Sodium Chloride 0.9% 2 ML Flush BID IV.FLUSH SCH ×2 (08:36→21:12)
[2018-10-13] MEDS: Senna/Docusate Sodium 8.6/50 MG Tablet PO SCH ×2 (08:36→21:07)
--- NOTE | 2018-10-13 11:49 | P.PNFP ---
Subjective Interval history: No acute events overnight. Remains afebrile, vitals stable. Patient seen and examined this AM. Patient has no new complaints or concerns. Denies fevers, CP, dyspnea, palpitations. Has been ambulatory. Tolerating diet. States he has not noticed much drainage from his wound vac. <Partha Tate - 10/13/18 11:49> Results - Labs Result diagrams: 10/13/18 04:22 10/13/18 04:22 <Rina Lam 10/13/18 13:59> Abnormal lab results 10/13/18 Range/Units 04:22 RBC 3.82 L (4.50-5.90) mil/mm3 Hgb 11.7 L (13.0-17.0) gm/dL Hct 35.0 L (39.0-51.0) % Short CBC 10/13/18 Range/Units 04:22 WBC 7.2 (4.0-11.0) th/mm3 Hgb 11.7 L (13.0-17.0) gm/dL Hct 35.0 L (39.0-51.0) % Plt Count 326 (150-450) th/mm3 [facility] 10/13/18 04:22 Sodium 139 Potassium 4.2 Chloride 102 Carbon Dioxide 27.3 BUN 15 Creatinine 0.83 Calcium 8.5 <Rina Lam 10/13/18 13:59> Abnormal lab results 10/13/18 Range/Units 04:22 RBC 3.82 L (4.50-5.90) mil/mm3 Hgb 11.7 L (13.0-17.0) gm/dL Hct 35.0 L (39.0-51.0) % Short CBC 10/13/18 Range/Units 04:22 WBC 7.2 (4.0-11.0) th/mm3 Hgb 11.7 L (13.0-17.0) gm/dL Hct 35.0 L (39.0-51.0) % Plt Count 326 (150-450) th/mm3 [facility] 10/13/18 04:22 Sodium 139 Potassium 4.2 Chloride 102 Carbon Dioxide 27.3 BUN 15 Creatinine 0.83 Calcium 8.5 <Partha Tate - 10/13/18 11:49> Physical Exam Vital signs: Vital Signs 10/12/18 16:00 10/12/18 20:00 10/13/18 00:00 Temperature 97.8 F 98 F 97.6 F Pulse Rate 84 71 63 Respiratory Rate 20 16 16 Blood Pressure 120/66 138/80 117/64 Pulse Oximetry 99 97 10/13/18 04:00 10/13/18 08:00 Temperature 97.6 F 97.3 F L Pulse Rate 63 52 L Respiratory Rate 20 15 Blood Pressure 97/56 L 108/61 Pulse Oximetry 98 100 Intake & Output 10/12/18 10/13/18 10/13/18 18:59 06:59 18:59 Intake Total 1060 / 1060 934 / 934 50 / 50 Output Total 500 / 500 500 / 500 Balance 560 / 560 434 / 434 50 / 50 Weight 74.2 kg Intake: IV 100 / 100 50 / 50 50 / 50 Ancef 2 GM Premix Inj 2 gm In 100 / 100 50 / 50 50 / 50 50 ml @ 150 mls/hr IV.SIG Q8H [facility] Rx#:[id number] Oral 960 / 960 884 / 884 Output: Urine 500 / 500 500 / 500 Other: Mode Setting Right Knee Continuous Continuous Continuous Date of Last Bowel Movement 10/10/18 10/12/18 # Bowel Movements 1 <Rina Lam R - 10/13/18 13:59> Vital Signs 10/12/18 12:00 10/12/18 16:00 10/12/18 20:00 Temperature 97.7 F 97.8 F 98 F Pulse Rate 61 84 71 Respiratory Rate 20 20 16 Blood Pressure 122/80 120/66 138/80 Pulse Oximetry 99 99 10/13/18 00:00 10/13/18 04:00 Temperature 97.6 F 97.6 F Pulse Rate 63 63 Respiratory Rate 16 20 Blood Pressure 117/64 97/56 L Pulse Oximetry 97 98 Intake & Output 10/12/18 10/13/18 10/13/18 18:59 06:59 18:59 Intake Total 1060 / 1060 934 / 934 50 / 50 Output Total 500 / 500 500 / 500 Balance 560 / 560 434 / 434 50 / 50 Weight 74.2 kg Intake: IV 100 / 100 50 / 50 50 / 50 Ancef 2 GM Premix Inj 2 gm In 100 / 100 50 / 50 50 / 50 50 ml @ 150 mls/hr IV.SIG Q8H [facility] Rx#:[id number] Oral 960 / 960 884 / 884 Output: Urine 500 / 500 500 / 500 Other: Mode Setting Right Knee Continuous Continuous Continuous Date of Last Bowel Movement 10/10/18 10/12/18 # Bowel Movements 1 <Partha Tate - 10/13/18 11:49> Narrative: GENERAL: Well-nourished well-developed, not in acute distress SKIN: Cool and dry, no generalized rash HEAD: Atraumatic. Normocephalic. No temporal or scalp tenderness. EYES: Scleral icterus. No injection or drainage. No petechia ENT: Nothing abnormal detected NECK: Trachea midline. Supple, nontender, no meningeal signs. CARDIOVASCULAR: Regular rate and rhythm, normal S1-S2, no murmurs/gallops/rubs RESPIRATORY: Clear to auscultation bilaterally. GASTROINTESTINAL: Abdomen soft nontender. MUSCULOSKELETAL: right knee wound vac in place. Mild tenderness to palpation. + 2 peripheral pulses bilaterally. Normal range of motion. Sensation intact NEUROLOGICAL: Alert oriented 3. Nonfocal. <Partha Tate - 10/13/18 11:49> Assessment and Plan - Assessment (1) Cellulitis of right knee Code(s): L03.115 - Cellulitis of right lower limb Status: Inactive (2) Hepatitis C Code(s): B19.20 - Unspecified viral hepatitis C without hepatic coma Status: Acute (3) Nutrition, metabolism, and development symptoms Code(s): R63.8 - Other symptoms and signs concerning food and fluid intake Status: Acute <Rina Lam - 10/13/18 13:59> (1) Cellulitis of right knee Code(s): L03.115 - Cellulitis of right lower limb Status: Inactive Plan: Patient is a 42-year-old male with past medical history of IV drug use who presented to the ED with worsening right knee pain and swelling. Patient failed outpatient treatment with Dalvance. Admitted for Right knee cellulitis with failed outpatient treatment. Prior ED encounter on 09/30 x-ray of the right knee showed prepatellar swelling , no acute bony abnormalities. On admission right knee erythema and swelling noted on exam with limited flexion due to pain. Erythema measured to be 10 x 8 cm. MRI: abscess vs bursitis; given edema cannot rule out osteomyelitis Tylenol and Toradol for pain with morphine for breakthrough (decreased from 4mg to 2 mg) -Vital signs stable and pain well-controlled. Infectious disease consulted, appreciate recommendations -Zyvox IV switched to Ancef until Dalvance elimination life reached -Blood cultures are no growth to date -Wound cx staph aureus -ID consult: GC and chlamydia neg, HIV neg, hep C labs RNA pending -2D echo showing normal LV size, LV systolic function normal with eEF 55-60%, no vegetation noted -Ortho consult: Status post irrigation and debridement, incision and drainage, and application of wound VAC on 10/06; cultures: Growing staph aureus; wound vac change M/W/F. Will give extra dose of morphine a few minutes prior to wound vac change as pt was complaining it was extremely painful. ID recommends continued Ancef until Discharge plans are finalized. Patient has no electricity source for wound vac. Appreciate Ortho recommendations on need for wound vac or alternatives and discharge planning. (2) Hepatitis C Code(s): B19.20 - Unspecified viral hepatitis C without hepatic coma Status: Acute Plan: Diagnosed with Hep C during admission -RNA PCR pending -HIV and hep B non-reactive -appreciate ID recommendations (3) Nutrition, metabolism, and development symptoms Code(s): R63.8 - Other symptoms and signs concerning food and fluid intake Status: Acute Plan: Fluids: not indicated at this time Electrolytes: Replete as needed Diet: Regular DVT prophylaxis: b/l SCDs <Partha Tate - 10/13/18 11:46> - Attending Attestation This patient was seen and examined. The assessment and plan was discussed with the resident physician and I am in agreement with continued medical care as documented in this encounter. RINA LAM MD <Rina Lam - 10/13/18 13:59>
--- NOTE | 2018-10-13 17:08 | P.PNADD ---
Addendum to Inpatient Note Reason for Addendum: Additional Documentation Additional information: hospital course: 42-year-old male with past medical history of IV drug use who presented to the ED with worsening right knee pain and swelling. Patient failed outpatient treatment with Dalvance. Admitted for Right knee cellulitis with failed outpatient treatment. Afebrile on admission and no elevated WBC. Prior ED encounter on 09/30 x-ray of the right knee showed prepatellar swelling, no acute bony abnormalities. MRI this admission: abscess vs bursitis; given edema cannot rule out osteomyelitis. Patient given Tylenol and Toradol for pain with morphine for breakthrough (decreased from 4mg to 2 mg). Followed ID antibiotics recommendation of Zyvox IV switched to ancef until Dalvance elimination life reached. Wound cx grew staph aureus. Blood cultures are no growth to date. 2D echo showing normal LV size, LV systolic function normal with eEF 55-60%, no vegetation noted. Ortho consulted and performed, and application of wound VAC on 10/06; cultures: Wound culture from procedure grew staph aureus. Wound vac change M/W/F. Diagnosed with Hep C during admission. HIV and hep B non-reactive Procedures: 10/06 irrigation and debridement, incision and drainage of R knee
[2018-10-14] MEDS: Morphine Sulfate Inj 2 MG/ML Vial IV.PUSH PRN ×2 (02:00→08:12)
[2018-10-14] MEDS: Ibuprofen 600 MG Tablet PO SCH (05:17)
[2018-10-14 07:21] LABS: Baso % (Auto) 0.5 % (0.0-2.0); Eos # (Auto) 0.2 th/mm3 (0.0-0.4); Eos % (Auto) 2.8 % (0.0-4.0); Hematocrit 32.6 % (39.0-51.0); Hemoglobin 11.2 gm/dL (13.0-17.0); Lymph # (Auto) 1.4 th/mm3 (1.0-4.8); Lymph % (Auto) 18.5 % (9.0-44.0); Mean Corpuscular HGB Conc 34.4 % (32.0-36.0); Mean Corpuscular Hemoglobin 31.2 pg (27.0-34.0); Mean Corpuscular Volume 90.9 fL (80.0-100.0); Mean Platelet Volume 6.5 fL (7.0-11.0); Mono # (Auto) 0.4 th/mm3 (0.0-0.9); Mono % (Auto) 5.8 % (0.0-8.0); Neut # (Auto) 5.4 th/mm3 (1.8-7.7); Neut % (Auto) 72.4 % (16.0-70.0); Platelet Count 319 th/mm3 (150-450); Red Blood Count 3.59 mil/mm3 (4.50-5.90); Red Cell Distribution Width 13.9 % (11.6-17.2); White Blood Count 7.5 th/mm3 (4.0-11.0)
[2018-10-14 07:43] LABS: Anion Gap 6 meq/L (5-15); Blood Urea Nitrogen 16 mg/dL (7-18); Calcium 8.6 mg/dL (8.5-10.1); Chloride 102 meq/L (98-107); Glomerular Filtration Rate Greater Than 89 mL/min (>89); Glucose,Random 82 mg/dL (74-106); Potassium 4.6 meq/L (3.5-5.1); Sodium 139 meq/L (136-145)
[2018-10-14] MEDS: ceFAZolin 2 GM Premix Inj 2 GM/50 ML PIGGYBACK IV.SIG SCH ×3 (08:12→23:53)
[2018-10-14] MEDS: Sodium Chloride 0.9% 2 ML Flush BID IV.FLUSH SCH ×2 (08:13→21:05)
[2018-10-14] MEDS: Senna/Docusate Sodium 8.6/50 MG Tablet PO SCH ×2 (08:13→21:05)
[2018-10-14] MEDS: Ketorolac Inj 30 MG/ML (IVP) Vial IV.PUSH PRN ×2 (12:15→19:46)
--- NOTE | 2018-10-14 13:44 | P.PNFP ---
Subjective Interval history: Patient seen and examined at bedside this morning. No acute events overnight. Patient reports that right knee pain is improving he is able to ambulate and bear weight on his right leg. Denies any chest pain, shortness of breath, fever, chills, nausea, vomiting, or abdominal pain. <Christopher Madrigal - 10/14/18 13:44> Results - Labs Result diagrams: 10/15/18 04:50 10/14/18 06:47 <Tae Finn - 10/15/18 11:34> Abnormal lab results 10/15/18 Range/Units 04:50 RBC 3.44 L (4.50-5.90) mil/mm3 Hgb 10.8 L (13.0-17.0) gm/dL Hct 31.6 L (39.0-51.0) % [place] % (Auto) 8.1 H (0.0-8.0) % Short CBC 10/15/18 Range/Units 04:50 WBC 5.9 (4.0-11.0) th/mm3 Hgb 10.8 L (13.0-17.0) gm/dL Hct 31.6 L (39.0-51.0) % Plt Count 291 (150-450) th/mm3 <Tae Finn - 10/15/18 11:34> Abnormal lab results 10/14/18 Range/Units 06:47 RBC 3.59 L (4.50-5.90) mil/mm3 Hgb 11.2 L (13.0-17.0) gm/dL Hct 32.6 L (39.0-51.0) % MPV 6.5 L (7.0-11.0) fL Neut % (Auto) 72.4 H (16.0-70.0) % Short CBC 10/14/18 Range/Units 06:47 WBC 7.5 (4.0-11.0) th/mm3 Hgb 11.2 L (13.0-17.0) gm/dL Hct 32.6 L (39.0-51.0) % Plt Count 319 (150-450) th/mm3 [facility] 10/14/18 06:47 Sodium 139 Potassium 4.6 Chloride 102 Carbon Dioxide 31.0 BUN 16 Creatinine 0.75 Calcium 8.6 <Christopher Madrigal - 10/14/18 13:44> Physical Exam Vital signs: Vital Signs 10/14/18 12:00 10/14/18 16:00 10/14/18 20:00 Temperature 97.9 F 98.4 F 98 F Pulse Rate 64 79 82 Respiratory Rate 14 15 18 Blood Pressure 115/55 L 115/60 118/62 Pulse Oximetry 99 99 99 10/15/18 00:00 10/15/18 04:00 10/15/18 08:00 Temperature 97.6 F 97.2 F L 97.6 F Pulse Rate 61 66 69 Respiratory Rate 18 18 20 Blood Pressure 109/59 L 112/60 135/77 Pulse Oximetry 97 99 99 Intake & Output 10/14/18 10/15/18 10/15/18 18:59 06:59 18:59 Intake Total 1060 / 1060 670 / 670 50 / 50 Output Total 1250 / 1250 Balance 1060 / 1060 -580 / -580 50 / 50 Weight 70.1 kg Intake: IV 100 / 100 50 / 50 50 / 50 Ancef 2 GM Premix Inj 2 gm In 100 / 100 50 / 50 50 / 50 50 ml @ 150 mls/hr IV.SIG Q8H [facility] Rx#:[id number] Oral 960 / 960 620 / 620 Output: Urine 1250 / 1250 Other: Mode Setting Right Knee Continuous Continuous Continuous # Voids 4 Date of Last Bowel Movement 10/14/18 10/14/18 10/14/18 <Tae Finn R - 10/15/18 11:34> Vital Signs 10/13/18 16:00 10/13/18 20:00 10/14/18 00:00 Temperature 97.9 F 97.9 F 97.9 F Pulse Rate 74 85 56 L Respiratory Rate 13 20 20 Blood Pressure 114/66 134/67 118/75 Pulse Oximetry 100 97 99 10/14/18 04:00 10/14/18 08:00 10/14/18 12:00 Temperature 97.4 F L 97.8 F Pulse Rate 61 56 L 63 Respiratory Rate 20 13 Blood Pressure 112/54 L 106/56 L Pulse Oximetry 100 100 Intake & Output 10/13/18 10/14/18 10/14/18 18:59 06:59 18:59 Intake Total 1060 / 1060 1155 / 1155 50 / 50 Balance 1060 / 1060 1155 / 1155 50 / 50 Weight 70.1 kg Intake: IV 100 / 100 50 / 50 50 / 50 Ancef 2 GM Premix Inj 2 gm In 100 / 100 50 / 50 50 / 50 50 ml @ 150 mls/hr IV.SIG Q8H [facility] Rx#:[id number] Oral 960 / 960 1105 / 1105 Other: Mode Setting Right Knee Continuous Continuous Continuous # Voids 4 3 Date of Last Bowel Movement 10/12/18 10/13/18 10/14/18 # Bowel Movements 1 <Christopher Madrigal D - 10/14/18 13:44> Narrative: GENERAL: Well-nourished well-developed, not in acute distress SKIN: Cool and dry, no generalized rash HEAD: Atraumatic. Normocephalic. No temporal or scalp tenderness. EYES: Scleral icterus. No injection or drainage. No petechia ENT: Nothing abnormal detected NECK: Trachea midline. Supple, nontender, no meningeal signs. CARDIOVASCULAR: Regular rate and rhythm, normal S1-S2, no murmurs/gallops/rubs RESPIRATORY: Clear to auscultation bilaterally. GASTROINTESTINAL: Abdomen soft nontender. MUSCULOSKELETAL: right knee wound vac in place. Mild tenderness to palpation. + 2 peripheral pulses bilaterally. Normal range of motion. Sensation intact NEUROLOGICAL: Alert oriented 3. Nonfocal. <Christopher Madrigal D - 10/14/18 13:44> Assessment and Plan - Assessment (1) Cellulitis of right knee Code(s): L03.115 - Cellulitis of right lower limb Status: Inactive (2) Hepatitis C Code(s): B19.20 - Unspecified viral hepatitis C without hepatic coma Status: Acute (3) Nutrition, metabolism, and development symptoms Code(s): R63.8 - Other symptoms and signs concerning food and fluid intake Status: Acute <Tae Finn - 10/15/18 11:34> (1) Cellulitis of right knee Code(s): L03.115 - Cellulitis of right lower limb Status: Inactive Plan: Patient is a 42-year-old male with past medical history of IV drug use who presented to the ED with worsening right knee pain and swelling. Patient failed outpatient treatment with Dalvance. Admitted for Right knee cellulitis with failed outpatient treatment. Prior ED encounter on 09/30 x-ray of the right knee showed prepatellar swelling , no acute bony abnormalities. On admission right knee erythema and swelling noted on exam with limited flexion due to pain. Erythema measured to be 10 x 8 cm. MRI: abscess vs bursitis; given edema cannot rule out osteomyelitis Toradol for pain with morphine for breakthrough -Vital signs stable and pain well-controlled. Infectious disease consulted, appreciate recommendations -Zyvox IV switched to Ancef until Dalvance elimination life reached -Blood cultures are no growth to date -Wound cx staph aureus -ID consult: GC and chlamydia neg, HIV neg, hep C positive -2D echo showing normal LV size, LV systolic function normal with eEF 55-60%, no vegetation noted -Ortho consult: Status post irrigation and debridement, incision and drainage, and application of wound VAC on 10/06; cultures: Growing staph aureus; wound vac change M/W/F. Will give extra dose of morphine a few minutes prior to wound vac change as pt was complaining it was extremely painful. ID recommends continued Ancef until Discharge plans are finalized. Patient has no electricity source for wound vac. Appreciate Ortho recommendations on need for wound vac or alternatives and discharge planning. (2) Hepatitis C Code(s): B19.20 - Unspecified viral hepatitis C without hepatic coma Status: Acute Plan: Diagnosed with Hep C during admission -HCV RNA pcr: 6.27 -HIV and hep B non-reactive -appreciate ID recommendations (3) Nutrition, metabolism, and development symptoms Code(s): R63.8 - Other symptoms and signs concerning food and fluid intake Status: Acute Plan: Fluids: not indicated at this time Electrolytes: Replete as needed Diet: Regular DVT prophylaxis: b/l SCDs <Christopher Madrigal - 10/14/18 13:39> - Attending Attestation This patient was seen and evaluated with the resident physician. I agree with the plan of care as discussed with me and documented in the resident note. Tae Finn MD <Tae Finn - 10/15/18 11:34>
[2018-10-15] MEDS: Ketorolac Inj 30 MG/ML (IVP) Vial IV.PUSH PRN ×4 (03:03→21:17)
[2018-10-15 07:55] LABS: Baso % (Auto) 0.5 % (0.0-2.0); Eos # (Auto) 0.2 th/mm3 (0.0-0.4); Eos % (Auto) 3.6 % (0.0-4.0); Hematocrit 31.6 % (39.0-51.0); Hemoglobin 10.8 gm/dL (13.0-17.0); Lymph # (Auto) 1.4 th/mm3 (1.0-4.8); Lymph % (Auto) 23.9 % (9.0-44.0); Mean Corpuscular HGB Conc 34.1 % (32.0-36.0); Mean Corpuscular Hemoglobin 31.3 pg (27.0-34.0); Mean Corpuscular Volume 91.9 fL (80.0-100.0); Mean Platelet Volume 7.2 fL (7.0-11.0); Mono # (Auto) 0.5 th/mm3 (0.0-0.9); Mono % (Auto) 8.1 % (0.0-8.0); Neut # (Auto) 3.8 th/mm3 (1.8-7.7); Neut % (Auto) 63.9 % (16.0-70.0); Platelet Count 291 th/mm3 (150-450); Red Blood Count 3.44 mil/mm3 (4.50-5.90); Red Cell Distribution Width 14.5 % (11.6-17.2); White Blood Count 5.9 th/mm3 (4.0-11.0)
[2018-10-15] MEDS: ceFAZolin 2 GM Premix Inj 2 GM/50 ML PIGGYBACK IV.SIG SCH ×3 (08:54→23:01)
[2018-10-15] MEDS: Sodium Chloride 0.9% 2 ML Flush BID IV.FLUSH SCH ×2 (08:55→21:19)
[2018-10-15] MEDS: Senna/Docusate Sodium 8.6/50 MG Tablet PO SCH ×2 (08:55→21:18)
[2018-10-15] MEDS: Morphine Sulfate Inj 2 MG/ML Vial IV.PUSH PRN (11:38)
--- NOTE | 2018-10-15 12:53 | P.PNID ---
Subjective Remarks: Mr. Ernst is a 42-year-old male with past medical history significant for IV drug abuse with prior history of multiple skin abscesses. Patient denies any prior history of endocarditis or epidural abscesses. Patient presented to the emergency department on September 30, 2018 for right knee pain and swelling. At that time he was thought to have cellulitis and was given 1 dose of dalbavancin which is an extended release Lipoglycoprotein like vancomycin IV and asked to return for reassessment in 2 days. Patient returned on 10/04/2018 and was admitted due to worsening pain and swelling. Knee pain worst with weight bearing, however still able to ambulate. He denies fever, chills , n/v, dizziness, back pain, cp or sob. Patient also noticed pus-like drainage from knee last night but denies increase in erythema. Of note patient uses IV heroin and meth, last used 3 days ago. He reports he only injects on both arms. Denies any pain elsewhere in his body. He denies any injection at knee likely hematogenous dissemination will need endovascular workup. ID consulted for evaluation and Mment of patellar abscess and possible right knee septic arthritis. Notes reviewed Temps ok C/O pain Post note reviewed - septic prepatellar bursitis; has wound vac in place C/S 10/05 MSSA BC negative ECHO negative Antibiotics: Ancef IV Lines: PIV Past Medical History: Hep C Back surgery Allergies/Adverse Reactions: Allergies No Known Allergies Allergy (Unverified 10/04/18 10:47) Objective Vital Signs 10/14/18 16:00 10/14/18 20:00 10/15/18 00:00 Temperature 98.4 F 98 F 97.6 F Pulse Rate 79 82 61 Respiratory Rate 15 18 Blood Pressure 115/60 118/62 109/59 L Pulse Oximetry 99 99 97 10/15/18 04:00 10/15/18 08:00 Temperature 97.2 F L 97.6 F Pulse Rate 66 69 Respiratory Rate 18 20 Blood Pressure 112/60 135/77 Pulse Oximetry 99 99 Intake & Output 10/14/18 10/15/18 10/15/18 18:59 06:59 18:59 Intake Total 1060 / 1060 670 / 670 50 / 50 Output Total 1250 / 1250 Balance 1060 / 1060 -580 / -580 50 / 50 Weight 70.1 kg Intake: IV 100 / 100 50 / 50 50 / 50 Ancef 2 GM Premix Inj 2 gm In 100 / 100 50 / 50 50 / 50 50 ml @ 150 mls/hr IV.SIG Q8H [facility] Rx#:[id number] Oral 960 / 960 620 / 620 Output: Urine 1250 / 1250 Other: Mode Setting Right Knee Continuous Continuous Continuous # Voids 4 Date of Last Bowel Movement 10/14/18 10/14/18 10/14/18 10/06/18 08:29 Wound - Knee Fungal Smear - Final No fungal elements seen 10/06/18 08:29 Wound - Knee Fungal Culture - Preliminary No growth in 1 week 10/06/18 08:29 Wound - Knee Acid Fast Bacilli Smear - Final No acid fast bacilli seen 10/06/18 08:29 Wound - Knee Mycobacterial Culture - Preliminary No growth in 1 week Lab - Hematology Results 10/14/18 10/15/18 06:47 04:50 WBC 7.5 5.9 RBC 3.59 L 3.44 L Hgb 11.2 L 10.8 L Hct 32.6 L 31.6 L MCV 90.9 91.9 MCH 31.2 31.3 MCHC 34.4 34.1 RDW 13.9 14.5 Plt Count 319 291 MPV 6.5 L 7.2 Neut % (Auto) 72.4 H 63.9 Lymph % (Auto) 18.5 23.9 [place] % (Auto) 5.8 8.1 H Eos % (Auto) 2.8 3.6 Baso % (Auto) 0.5 0.5 Neut # (Auto) 5.4 3.8 Lymph # (Auto) 1.4 1.4 [place] # (Auto) 0.4 0.5 Eos # (Auto) 0.2 0.2 Baso # (Auto) 0.0 0.0 WBC Differential . . Differential Comment Auto diff final Auto diff final Lab - Chemistry Results 10/14/18 06:47 Sodium 139 Potassium 4.6 Chloride 102 Carbon Dioxide 31.0 Anion Gap 6 BUN 16 Creatinine 0.75 Estimated GFR Greater than 89 Random Glucose 82 Calcium 8.6 Imaging: ITS Impressions Knee MRI 10/04/18 00:00 CONCLUSION: 1. Probable prepatellar abscess or bursitis with complex rim-enhancing fluid collection present. There is surrounding cellulitis. There is some mild marrow edema in the medial femoral condyle and patella with questionable enhancement postcontrast. Cannot exclude early osteomyelitis. Small knee joint effusion. Ligaments and menisci intact. Physical Exam: GENERAL: awake and alert, not in respiratory distress SKIN: Cool and dry, no generalized rash HEAD: Atraumatic. Normocephalic. No temporal or scalp tenderness. EYES: Pupils equal round and reactive. Scleral icterus. No injection or drainage. No petechia ENT:No nasal drainage, moist oral mucosa NECK: Trachea midline. Supple, nontender, no meningeal signs. CARDIOVASCULAR: HS audible. RESPIRATORY: Clear to auscultation bilaterally. GASTROINTESTINAL: Abdomen soft nontender. MUSCULOSKELETAL: Right knee with clean erythematous base,no purulence noted. Still has swelling, induration and erythema in periwound area. NEUROLOGICAL: Alert oriented 3. Nonfocal. Psych cooperative IV line sites ok. Assessment and Plan - Plan Right knee patellar abscess/bursitis MSSA infection Cellulitis R knee IVDA Hep C positive Shares needles consented to HIV Hepatitis testing. h/o skin abscesses in past. Recs: Patient has received Dalbavancin please dont give any more Vanco IV as it can be nephrotoxic. Continue IV Ancef while in hospital. Patient reports being homeless and lost his RV. Cannot send home with Wound vac if no electricity, migdalia CM. Follow C/S Monitor progress. No PICC till cleared by ID
--- NOTE | 2018-10-15 14:16 | P.PNPD ---
Objective Vital Signs: Vital Signs Temp Pulse Resp BP Pulse Ox 10/15/18 12:00 97.8 F 84 18 134/86 96 10/15/18 08:00 97.6 F 69 20 135/77 99 10/15/18 04:00 97.2 F L 66 18 112/60 99 10/15/18 00:00 97.6 F 61 18 109/59 L 97 10/14/18 20:00 98 F 82 18 118/62 99 10/14/18 16:00 98.4 F 79 15 115/60 99 Intake and Output 10/14/18 10/15/18 10/15/18 22:59 06:59 14:59 Intake Total 1010 / 1010 670 / 670 50 / 50 Output Total 1250 / 1250 Balance 1010 / 1010 -580 / -580 50 / 50 Intake: IV 50 / 50 50 / 50 50 / 50 Ancef 2 GM Premix Inj 2 gm In 50 / 50 50 / 50 50 / 50 50 ml @ 150 mls/hr IV.SIG Q8H [facility] Rx#:[id number] Oral 960 / 960 620 / 620 Output: Urine 1250 / 1250 Other: Mode Setting Right Knee Continuous Continuous # Voids 4 Date of Last Bowel Movement 10/14/18 10/14/18 Weight 70.1 kg - Labs 10/15/18 04:50 10/14/18 06:47 Abnormal lab results 10/15/18 Range/Units 04:50 RBC 3.44 L (4.50-5.90) mil/mm3 Hgb 10.8 L (13.0-17.0) gm/dL Hct 31.6 L (39.0-51.0) % [place] % (Auto) 8.1 H (0.0-8.0) % All other labs normal. Assessment and Plan - Assessment (1) Cellulitis of right knee Code(s): L03.115 - Cellulitis of right lower limb Status: Inactive (2) Hepatitis C Code(s): B19.20 - Unspecified viral hepatitis C without hepatic coma Status: Acute (3) Nutrition, metabolism, and development symptoms Code(s): R63.8 - Other symptoms and signs concerning food and fluid intake Status: Acute
--- NOTE | 2018-10-15 14:20 | P.PNFP ---
Subjective Interval history: He is a 42 year old male with a history of IVDA who was admitted with worsening knee pain and is s/p I&D of R knee with wound vac in place. There were no acute events overnight. He complains this morning of fever and chills and general malaise. He is a heroin user and last used right before hospitalization. He has withdrawn before and states that this feels similar to his withdraw. He has denies INIGUEZ, nausea, emesis, chest pain, palpitations, change in bowel habits. He has no other complaints at this times and has minimal pain in the knee. He does state that he has significant pain with wound vac changes. <Wesley Monaco J - 10/15/18 14:31> Results - Labs Result diagrams: 10/16/18 03:50 10/14/18 06:47 <Tae Finn R - 10/16/18 10:14> Abnormal lab results 10/16/18 Range/Units 03:50 RBC 3.48 L (4.50-5.90) mil/mm3 Hgb 10.8 L (13.0-17.0) gm/dL Hct 32.5 L (39.0-51.0) % Short CBC 10/16/18 Range/Units 03:50 WBC 8.0 (4.0-11.0) th/mm3 Hgb 10.8 L (13.0-17.0) gm/dL Hct 32.5 L (39.0-51.0) % Plt Count 256 (150-450) th/mm3 <Tae Finn R - 10/16/18 10:14> Abnormal lab results 10/15/18 Range/Units 04:50 RBC 3.44 L (4.50-5.90) mil/mm3 Hgb 10.8 L (13.0-17.0) gm/dL Hct 31.6 L (39.0-51.0) % [place] % (Auto) 8.1 H (0.0-8.0) % Short CBC 10/15/18 Range/Units 04:50 WBC 5.9 (4.0-11.0) th/mm3 Hgb 10.8 L (13.0-17.0) gm/dL Hct 31.6 L (39.0-51.0) % Plt Count 291 (150-450) th/mm3 <Wesley Monaco J - 10/15/18 14:19> Physical Exam Vital signs: Vital Signs 10/15/18 12:00 10/15/18 16:00 10/15/18 20:00 Temperature 97.8 F 98.0 F 98.3 F Pulse Rate 84 73 68 Respiratory Rate 18 18 20 Blood Pressure 134/86 149/88 H 143/87 H Pulse Oximetry 96 100 99 10/16/18 00:00 10/16/18 03:42 10/16/18 04:00 Temperature 97.5 F L 97.7 F Pulse Rate 53 L 53 L 53 L Respiratory Rate 20 16 Blood Pressure 122/80 104/65 Pulse Oximetry 100 98 10/16/18 08:00 Temperature 97.3 F L Pulse Rate 52 L Respiratory Rate 19 Blood Pressure 98/63 L Pulse Oximetry 100 Intake & Output 10/15/18 10/16/18 10/16/18 18:59 06:59 18:59 Intake Total 100 / 100 850 / 850 Balance 100 / 100 850 / 850 Weight 70.9 kg Intake: IV 100 / 100 50 / 50 Ancef 2 GM Premix Inj 2 gm In 100 / 100 50 / 50 50 ml @ 150 mls/hr IV.SIG Q8H [facility] Rx#:[id number] Oral 800 / 800 Other: Mode Setting Right Knee Continuous Intermittent # Voids 6 3 Date of Last Bowel Movement 10/14/18 # Bowel Movements 1 <Tae Finn R - 10/16/18 10:14> Vital Signs 10/14/18 16:00 10/14/18 20:00 10/15/18 00:00 Temperature 98.4 F 98 F 97.6 F Pulse Rate 79 82 61 Respiratory Rate 15 18 18 Blood Pressure 115/60 118/62 109/59 L Pulse Oximetry 99 99 97 10/15/18 04:00 10/15/18 08:00 10/15/18 12:00 Temperature 97.2 F L 97.6 F 97.8 F Pulse Rate 66 69 84 Respiratory Rate 18 20 18 Blood Pressure 112/60 135/77 134/86 Pulse Oximetry 99 99 96 Intake & Output 10/14/18 10/15/18 10/15/18 18:59 06:59 18:59 Intake Total 1060 / 1060 670 / 670 50 / 50 Output Total 1250 / 1250 Balance 1060 / 1060 -580 / -580 50 / 50 Weight 70.1 kg Intake: IV 100 / 100 50 / 50 50 / 50 Ancef 2 GM Premix Inj 2 gm In 100 / 100 50 / 50 50 / 50 50 ml @ 150 mls/hr IV.SIG Q8H [facility] Rx#:[id number] Oral 960 / 960 620 / 620 Output: Urine 1250 / 1250 Other: Mode Setting Right Knee Continuous Continuous Continuous # Voids 4 Date of Last Bowel Movement 10/14/18 10/14/18 10/14/18 <Wesley Monaco - 10/15/18 14:19> Narrative: General: Well-developed, alert, and in no acute distress. Appears stated age HEENT: Atraumatic, moist mucous membranes Neck: Supple, trachea midline Cardiac: Regular rate and rhythm without murmur Pulmonary: Non-labored breathing. Lungs clear to auscultation bilaterally with good air movement Abdomen: Normal bowel sounds, soft and non-tender without rebound or guarding Extremities: No edema, 2+ pedal pulses, capillary refill less than 2 seconds. Wound VAC in place on right knee. <Wesley Monaco - 10/15/18 14:31> Assessment and Plan - Assessment (1) Abscess Code(s): L02.91 - Cutaneous abscess, unspecified Status: Acute (2) Hepatitis C Code(s): B19.20 - Unspecified viral hepatitis C without hepatic coma Status: Acute <Tae Finn - 10/16/18 10:14> (1) Abscess Code(s): L02.91 - Cutaneous abscess, unspecified Status: Acute (2) Hepatitis C Code(s): B19.20 - Unspecified viral hepatitis C without hepatic coma Status: Acute <Wesley Monaco - 10/15/18 15:57> - Assessment and Plan He is a 42-year-old male with a history of IVDA status post I&D of right knee abscess. He has a wound VAC in place. Right knee prepatellar abscess: No involvement of the right knee joint space Status post I&D on 10/06 and wound vac placement -Toradol for pain management, with morphine for breakthrough pain and extra dose of morphine for wound VAC changes -Infectious disease consulted, appreciate recommendations. Wound cultures grew MSSA. Continue IV Ancef until ready for discharge. -Wound VAC changes Monday per Ortho Hepatitis C: -Diagnosed during admission -HCV RNA pcr: 6.27 -HIV and hep B non-reactive -Will need outpatient follow-up with gastroenterology Fluids: Adequate p.o. intake Electrolytes: monitor and replete as needed Nutrition: Regular diet GI prophylaxis: not indicated VTE prophylaxis: SCDs Disposition: Wound vac changes are still necessary. He will be reevaluated by ortho likely tomorrow. He does not have electricity for wound VAC at home. Patient was seen and examined with Dr. Carbajal and care was discussed with Dr. Finn <Wesley Monaco - 10/15/18 16:01> - Attending Attestation This patient was evaluated with the resident physician. I agree with the plan of care as discussed with me and documented in the resident note. Tae Finn MD <Tae Finn - 10/16/18 10:14>
[2018-10-16 07:12] LABS: Baso % (Auto) 0.5 % (0.0-2.0); Eos # (Auto) 0.2 th/mm3 (0.0-0.4); Eos % (Auto) 3.1 % (0.0-4.0); Hematocrit 32.5 % (39.0-51.0); Hemoglobin 10.8 gm/dL (13.0-17.0); Lymph # (Auto) 1.9 th/mm3 (1.0-4.8); Lymph % (Auto) 23.3 % (9.0-44.0); Mean Corpuscular HGB Conc 33.3 % (32.0-36.0); Mean Corpuscular Hemoglobin 31.1 pg (27.0-34.0); Mean Corpuscular Volume 93.4 fL (80.0-100.0); Mean Platelet Volume 7.3 fL (7.0-11.0); Mono # (Auto) 0.6 th/mm3 (0.0-0.9); Mono % (Auto) 7.5 % (0.0-8.0); Neut # (Auto) 5.2 th/mm3 (1.8-7.7); Neut % (Auto) 65.6 % (16.0-70.0); Platelet Count 256 th/mm3 (150-450); Red Blood Count 3.48 mil/mm3 (4.50-5.90); Red Cell Distribution Width 14.5 % (11.6-17.2)
[2018-10-16 08:25] VITALS: O2SAT 100
[2018-10-16] MEDS: ceFAZolin 2 GM Premix Inj 2 GM/50 ML PIGGYBACK IV.SIG SCH (08:30)
--- NOTE | 2018-10-16 08:30 | P.PNOP ---
Subjective Interval history: pain much better, except during vac changes. Physical Exam Vital signs: Vital Signs 10/15/18 12:00 10/15/18 16:00 10/15/18 20:00 Temperature 97.8 F 98.0 F 98.3 F Pulse Rate 84 73 68 Respiratory Rate 18 18 20 Blood Pressure 134/86 149/88 H 143/87 H Pulse Oximetry 96 100 99 10/16/18 00:00 10/16/18 03:42 10/16/18 04:00 Temperature 97.5 F L 97.7 F Pulse Rate 53 L 53 L 53 L Respiratory Rate 20 16 Blood Pressure 122/80 104/65 Pulse Oximetry 100 98 10/16/18 08:00 Temperature 97.3 F L Pulse Rate 52 L Respiratory Rate 19 Blood Pressure 98/63 L Pulse Oximetry 100 Intake & Output 10/15/18 10/16/18 10/16/18 18:59 06:59 18:59 Intake Total 100 / 100 850 / 850 Balance 100 / 100 850 / 850 Weight 70.9 kg Intake: IV 100 / 100 50 / 50 Ancef 2 GM Premix Inj 2 gm In 100 / 100 50 / 50 50 ml @ 150 mls/hr IV.SIG Q8H [facility] Rx#:[id number] Oral 800 / 800 Other: Mode Setting Right Knee Continuous Intermittent # Voids 6 3 Date of Last Bowel Movement 10/14/18 # Bowel Movements 1 Narrative: in bed, nad vac removed. wound appears to be healing. no erythema or purulent drainage. neg homans nvi wet to dry dressing applied. Results - Labs CBC & Chem 7: 10/16/18 03:50 10/14/18 06:47 Laboratory Results - last 24 hr 10/16/18 03:50 WBC 8.0 RBC 3.48 L Hgb 10.8 L Hct 32.5 L MCV 93.4 MCH 31.1 MCHC 33.3 RDW 14.5 Plt Count 256 MPV 7.3 Neut % (Auto) 65.6 Lymph % (Auto) 23.3 [place] % (Auto) 7.5 Eos % (Auto) 3.1 Baso % (Auto) 0.5 Neut # (Auto) 5.2 Lymph # (Auto) 1.9 [place] # (Auto) 0.6 Eos # (Auto) 0.2 Baso # (Auto) 0.0 WBC Differential . Differential Comment Auto diff final Assessment and Plan - Assessment and Plan Abscess/infection right knee. SURGERY:I&D R knee with spencer of wound vac POD#10 (10/06/18) wbat d/c wound vac, start wet to dry dressing changes daily abx per ID. ortho stable f/up dr. lopez 2-3 weeks
[2018-10-16] MEDS: Sodium Chloride 0.9% 2 ML Flush BID IV.FLUSH SCH (08:31)
[2018-10-16] MEDS: Senna/Docusate Sodium 8.6/50 MG Tablet PO SCH (08:43)
--- NOTE | 2018-10-16 13:16 | P.PNFP ---
Subjective Interval history: He is a 42-year-old male admitted with prepatellar abscess who is been treated with IV Ancef thus far during his hospitalization. No acute events overnight. He reports decreased pain today with the discontinuation of his wound VAC. He denies fever, chills, chest pain, palpitations, headache, nausea, vomiting, change in bowel habits, abdominal pain. He is walking around the room and expresses desire to go home. Results - Labs Result diagrams: 10/16/18 03:50 10/14/18 06:47 Abnormal lab results 10/16/18 Range/Units 03:50 RBC 3.48 L (4.50-5.90) mil/mm3 Hgb 10.8 L (13.0-17.0) gm/dL Hct 32.5 L (39.0-51.0) % Short CBC 10/16/18 Range/Units 03:50 WBC 8.0 (4.0-11.0) th/mm3 Hgb 10.8 L (13.0-17.0) gm/dL Hct 32.5 L (39.0-51.0) % Plt Count 256 (150-450) th/mm3 Physical Exam Vital signs: Vital Signs 10/15/18 16:00 10/15/18 20:00 10/16/18 00:00 Temperature 98.0 F 98.3 F 97.5 F L Pulse Rate 73 68 53 L Respiratory Rate 18 20 20 Blood Pressure 149/88 H 143/87 H 122/80 Pulse Oximetry 100 99 100 10/16/18 03:42 10/16/18 04:00 10/16/18 08:00 Temperature 97.7 F 97.3 F L Pulse Rate 53 L 53 L 52 L Respiratory Rate 16 19 Blood Pressure 104/65 98/63 L Pulse Oximetry 98 100 Intake & Output 10/15/18 10/16/18 10/16/18 18:59 06:59 18:59 Intake Total 100 / 100 850 / 850 50 / 50 Balance 100 / 100 850 / 850 50 / 50 Weight 70.9 kg Intake: IV 100 / 100 50 / 50 50 / 50 Ancef 2 GM Premix Inj 2 gm In 100 / 100 50 / 50 50 / 50 50 ml @ 150 mls/hr IV.SIG Q8H RAKESH Rx#:[id number] Oral 800 / 800 Other: Mode Setting Right Knee Continuous Intermittent # Voids 6 3 Date of Last Bowel Movement 10/14/18 # Bowel Movements 1 Narrative: General: Well-developed, alert, and in no acute distress. Appears stated age HEENT: Atraumatic, moist mucous membranes Neck: Supple, trachea midline Cardiac: Regular rate and rhythm without murmur Pulmonary: Non-labored breathing. Lungs clear to auscultation bilaterally with good air movement Abdomen: Normal bowel sounds, soft and non-tender without rebound or guarding Extremities: No edema, 2+ pedal pulses, capillary refill less than 2 seconds. Wet-to-dry dressing in place. Assessment and Plan - Assessment (1) Abscess Code(s): L02.91 - Cutaneous abscess, unspecified Status: Acute (2) Hepatitis C Code(s): B19.20 - Unspecified viral hepatitis C without hepatic coma Status: Acute Plan: - Assessment and Plan He is a 42-year-old male with a history of IVDA status post I&D of right knee abscess. Wound VAC was discontinued today. Right knee prepatellar abscess: No involvement of the right knee joint space Status post I&D on 10/06 and wound vac placement -Toradol for pain management, with morphine for breakthrough pain and extra dose of morphine for wound VAC changes -Infectious disease consulted, appreciate recommendations. Wound cultures grew MSSA. Has been receiving IV Ancef. Spoke with Dr. Raya who is okay with discharge home p.o. Keflex -Switch to p.o. Keflex in anticipation of discharge Hepatitis C: -Diagnosed during admission -HCV RNA pcr: 6.27 -HIV and hep B non-reactive Fluids: Adequate p.o. intake Electrolytes: monitor and replete as needed Nutrition: Regular diet GI prophylaxis: not indicated VTE prophylaxis: SCDs Disposition: Anticipate discharge home today. He now needs wet-to-dry dressings. His girlfriend has been instructed on dressing changes Patient was seen and examined with Dr. Carbajal and care was discussed with Dr. Finn
--- NOTE | 2018-10-16 13:33 | P.PNID ---
Infectious Disease Brief Note Recd call from resident, Ortho cleared pt. Ok to discharge from ID standpoint on 2 weeks of Keflex. Will sign off please call back if any change in clinical condition or questions. Vital Signs - 24 hr 10/15/18 16:00 10/15/18 20:00 10/16/18 00:00 Temperature 98.0 F 98.3 F 97.5 F L Pulse Rate 73 68 53 L Respiratory Rate 18 20 20 Blood Pressure 149/88 H 143/87 H 122/80 Pulse Oximetry 100 99 100 10/16/18 03:42 10/16/18 04:00 10/16/18 08:00 Temperature 97.7 F 97.3 F L Pulse Rate 53 L 53 L 52 L Respiratory Rate 16 19 Blood Pressure 104/65 98/63 L Pulse Oximetry 98 100 Laboratory Results - last 24 hr 10/16/18 03:50 WBC 8.0 RBC 3.48 L Hgb 10.8 L Hct 32.5 L MCV 93.4 MCH 31.1 MCHC 33.3 RDW 14.5 Plt Count 256 MPV 7.3 Neut % (Auto) 65.6 Lymph % (Auto) 23.3 [place] % (Auto) 7.5 Eos % (Auto) 3.1 Baso % (Auto) 0.5 Neut # (Auto) 5.2 Lymph # (Auto) 1.9 [place] # (Auto) 0.6 Eos # (Auto) 0.2 Baso # (Auto) 0.0 WBC Differential . Differential Comment Auto diff final
[2018-10-16 13:41] VITALS: BP 137/84; RESP 18; TEMP 97.8
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
[2018-10-16 20:05] VITALS: PULSE 72
== END 2018-10-16 17:08 | disposition home or self-care (01) ==
LOC: NEPD 10:32 → NEDA 15:05 → INTOOBSV 15:05 → NEDA 16:16 → N04 16:32
PROVIDERS: ADMIT Family Medicine; ATTEND Family Medicine